=== PATIENT | male | born 1945 | race Caucasian/White ===

== ENCOUNTER → 2016-05-07 | Outpatient (CLI) | payer OTHER ==
[~2016-05-07] MED LIST: ADVIN25/60 INH; ALBUAER2 INH; ALL100 PO; ATOR10TA88 PO; CALC500C3 PO; CHOL400T PO; CHOL4POW6 PO; COLC0.6T54 PO; DIGO0.122 PO; DILT-115 PO; DOCU-94 PO; FURO-85 PO; GLUC10007 PO; LISI-725 PO; LORA-741 PO; MAGN250T8 PO; OMEG10007 PO; POTACAP PO; RIVA1TAB4 PO; VITBC PO
[2016-05-07 17:59] LABS: BLOOD UREA NITROGEN 38 mg/dl (7-18); BUN/CREATININE RATIO 31.7 (10-20); CALCIUM 9.2 mg/dl (8.5-10.1); CARBON DIOXIDE 26 mmol/L (21-32); CHLORIDE 104 mmol/L (98-107); GLUCOSE 87 mg/dl (70-99); POTASSIUM 4.2 mmol/L (3.5-5.1); SODIUM 141 mmol/L (136-145)
== END | disposition home or self-care (01) ==
LOC: C.LAB1850 16:16
PROVIDERS: ATTEND Internal Medicine Cardiovascular Disease
DX: I50.9 Heart failure, unspecified (principal)

== ENCOUNTER → 2016-08-06 | Outpatient (CLI) | payer OTHER ==
[~2016-08-06] MED LIST changes: +ATOR10TA82 PO; -ATOR10TA88 PO
[2016-08-06 09:53] LABS: HEMATOCRIT 46.9 % (42-52); MEAN CELL VOLUME 96.7 fL (80-100); MEAN CORPUSCULAR HEMOGLOBIN 32.8 pg (25-34); MEAN CORPUSCULAR HGB CONC 33.9 g/dl (32-36); MEAN PLATELET VOLUME 11.4 fL (7.4-10.4); PLATELET COUNT 180 K/uL (130-400); RED BLOOD COUNT 4.85 M/uL (4.7-6.1); WHITE BLOOD COUNT 4.51 K/uL (4.8-10.8)
[2016-08-06 10:15] LABS: CALCIUM 9.4 mg/dl (8.5-10.1)
[2016-08-06 10:18] LABS: ALT/SGPT 45 U/L (12-78); AST/SGOT 36 U/L (15-37); BLOOD UREA NITROGEN 21 mg/dl (7-18); BUN/CREATININE RATIO 21.9 (10-20); CARBON DIOXIDE 27 mmol/L (21-32); CHLORIDE 104 mmol/L (98-107); CREATININE 0.97 mg/dl (0.60-1.40); GLUCOSE 90 mg/dl (70-99); MAGNESIUM 2.2 mg/dl (1.8-2.4); POTASSIUM 3.8 mmol/L (3.5-5.1); SODIUM 140 mmol/L (136-145)
[2016-08-06 10:20] LABS: ALKALINE PHOSPHATASE 188 U/L (45-117)
== END | disposition home or self-care (01) ==
LOC: C.LAB1850 07:33
PROVIDERS: ATTEND Physician Assistant
DX: I48.91 Unspecified atrial fibrillation (principal)

== ENCOUNTER → 2016-09-03 | Outpatient (CLI) | payer OTHER ==
[2016-09-03 09:57] LABS: BLOOD UREA NITROGEN 24 mg/dl (7-18); BUN/CREATININE RATIO 21.9 (10-20); CALCIUM 9.1 mg/dl (8.5-10.1); CARBON DIOXIDE 28 mmol/L (21-32); CHLORIDE 103 mmol/L (98-107); CHOLESTEROL 131 mg/dl (0-200); GLUCOSE 75 mg/dl (70-99); SODIUM 140 mmol/L (136-145); TRIGLYCERIDES 40 mg/dl (0-150); VERY LOW DENSITY LIPOPROT CALC 8 mg/dl
[2016-09-03 09:59] LABS: CHOLESTEROL/HDL RATIO 2.5; HDL CHOLESTEROL 52 mg/dl; LDL CHOLESTEROL CALCULATED 71 mg/dl
[2016-09-08 00:38] LABS: ALK PHOS ISO-INTESTINE 0 % (1-24); ALK PHOS ISO-LIVER 68 % (25-69); ALK PHOS ISO-PLACENTAL 0 % (<=0); ALK PHOS MACROHEPATIC 0 % (<=0); ALP (ALK P'TASE) 159 U/L (40-115)
== END | disposition home or self-care (01) ==
LOC: C.LAB1850 07:29
PROVIDERS: ATTEND Internal Medicine
DX: R74.8 Abnormal levels of other serum enzymes (principal); I50.9 Heart failure, unspecified

== ENCOUNTER → 2016-09-17 | Outpatient (CLI) | payer OTHER ==
[2016-09-17 10:05] LABS: BLOOD UREA NITROGEN 30 mg/dl (7-18); BUN/CREATININE RATIO 27.1 (10-20); CARBON DIOXIDE 28 mmol/L (21-32); CHLORIDE 104 mmol/L (98-107); GLUCOSE 74 mg/dl (70-99); POTASSIUM 4.1 mmol/L (3.5-5.1); SODIUM 141 mmol/L (136-145)
[2016-09-17 10:08] LABS: CALCIUM 9.5 mg/dl (8.5-10.1)
== END | disposition home or self-care (01) ==
LOC: C.LAB1850 07:15
PROVIDERS: ATTEND Physician Assistant
DX: I50.22 Chronic systolic (congestive) heart failure (principal)

== ENCOUNTER → 2016-11-30 | Outpatient (CLI) | payer OTHER ==
[~2016-11-30] MED LIST changes: -ATOR10TA82 PO; +ATOR10TA88 PO
[2016-11-30 17:15] LABS: BLOOD UREA NITROGEN 32 mg/dl (7-18); BUN/CREATININE RATIO 29.5 (10-20); CALCIUM 8.9 mg/dl (8.5-10.1); CARBON DIOXIDE 28 mmol/L (21-32); CHLORIDE 108 mmol/L (98-107); GLUCOSE 67 mg/dl (70-99); POTASSIUM 4.5 mmol/L (3.5-5.1); SODIUM 142 mmol/L (136-145)
== END | disposition home or self-care (01) ==
LOC: C.LAB1850 15:19
PROVIDERS: ATTEND Physician Assistant
DX: I42.9 Cardiomyopathy, unspecified (principal)

== ENCOUNTER → 2017-02-08 | Outpatient (CLI) | payer OTHER ==
[2017-02-08 09:35] LABS: BASO % 1.3 %; BASO ABS # 0.06 K/uL (0-0.2); COMPLETE YES; EOS % 5.6 %; IG% 0.2 %; LYMPH % 20.2 %; LYMPH ABS # 0.93 K/uL (1.2-3.4); MEAN CELL VOLUME 98.9 fL (80-100); MEAN CORPUSCULAR HEMOGLOBIN 33.9 pg (25-34); MEAN CORPUSCULAR HGB CONC 34.3 g/dl (32-36); MEAN PLATELET VOLUME 11.3 fL (7.4-10.4); MONO % 10.2 %; NEUT % 62.5 %; PLATELET COUNT 173 K/uL (130-400); RED BLOOD COUNT 4.45 M/uL (4.7-6.1); WHITE BLOOD COUNT 4.61 K/uL (4.8-10.8)
[2017-02-08 09:57] LABS: BLOOD UREA NITROGEN 31 mg/dl (7-18); BUN/CREATININE RATIO 29.4 (10-20); CALCIUM 9.1 mg/dl (8.5-10.1); CARBON DIOXIDE 26 mmol/L (21-32); CHLORIDE 107 mmol/L (98-107); CHOLESTEROL 145 mg/dl (0-200); CHOLESTEROL/HDL RATIO 2.2; CREATININE 1.07 mg/dl (0.60-1.40); GLUCOSE 93 mg/dl (70-99); HDL CHOLESTEROL 66 mg/dl; LDL CHOLESTEROL CALCULATED 67 mg/dl; POTASSIUM 3.8 mmol/L (3.5-5.1); SODIUM 140 mmol/L (136-145); TRIGLYCERIDES 58 mg/dl (0-150); VERY LOW DENSITY LIPOPROT CALC 12 mg/dl
[2017-02-08 10:03] LABS: ALB/GLOB RATIO 1.1 (0.9-2); ALKALINE PHOSPHATASE 95 U/L (45-117); ALT/SGPT 25 U/L (12-78); AST/SGOT 27 U/L (15-37); PROSTATE SPECIFIC ANTIGEN 0.172 ng/ml (0.000-4.000); URIC ACID 5.9 mg/dl (2.6-7.2)
[2017-02-08 10:25] LABS: LYME DISEASE AB IGG NEG (NEG); LYME DISEASE AB IGM NEG (NEG)
== END | disposition home or self-care (01) ==
LOC: C.LAB1850 07:31
PROVIDERS: ATTEND Internal Medicine
DX: R74.8 Abnormal levels of other serum enzymes (principal); I48.91 Unspecified atrial fibrillation; I10 Essential (primary) hypertension; E78.5 Hyperlipidemia, unspecified; Z12.5 Encounter for screening for malignant neoplasm of prostate; M10.9 Gout, unspecified; I50.22 Chronic systolic (congestive) heart failure; M25.50 Pain in unspecified joint

== ENCOUNTER → 2017-08-09 | Outpatient (CLI) | payer OTHER ==
[~2017-08-09] MED LIST changes: +ATOR10TA82 PO; -ATOR10TA88 PO
[2017-08-09 09:42] LABS: HEMATOCRIT 45.4 % (42-52); HEMOGLOBIN 15.3 g/dL (14.0-18.0); MEAN CELL VOLUME 100.7 fL (80-100); MEAN CORPUSCULAR HEMOGLOBIN 33.9 pg (25-34); MEAN CORPUSCULAR HGB CONC 33.7 g/dl (32-36); MEAN PLATELET VOLUME 11.1 fL (7.4-10.4); PLATELET COUNT 185 K/uL (130-400); RED CELL DISTRIBUTION WIDTH CV 13.8 % (11.5-14.5); WHITE BLOOD COUNT 3.96 K/uL (4.8-10.8)
[2017-08-09 09:54] LABS: ALT/SGPT 26 U/L (12-78); AST/SGOT 25 U/L (15-37); BLOOD UREA NITROGEN 31 mg/dl (7-18); CARBON DIOXIDE 29 mmol/L (21-32); CHOLESTEROL 135 mg/dl (0-200); GLUCOSE 83 mg/dl (70-99); POTASSIUM 3.6 mmol/L (3.5-5.1); SODIUM 140 mmol/L (136-145)
[2017-08-09 09:57] LABS: ALKALINE PHOSPHATASE 85 U/L (45-117); LDL CHOLESTEROL CALCULATED 67 mg/dl; TOTAL PROTEIN 7.7 gm/dl (6.4-8.2)
== END | disposition home or self-care (01) ==
LOC: C.LAB1850 07:33
PROVIDERS: ATTEND Internal Medicine
DX: I50.22 Chronic systolic (congestive) heart failure (principal); I48.91 Unspecified atrial fibrillation; E78.5 Hyperlipidemia, unspecified

== ENCOUNTER 2020-02-26 11:56 | Observation (INO) ==
[2020-02-26] MEDS ORDERED: fentaNYL citrate 100 MCG/2 ML VIAL ONE ×2 (12:38→13:13)
[2020-02-26] MEDS ORDERED: MIDAZOLAM HCL 5 MG/ML 1 ML VIAL ONE (12:38)
--- NOTE | 2020-02-26 12:45 | History & Physical Report ---
Date of Service February 26, 2020 Assessment & Plan (1) Cardiomyopathy: With his cardiomyopathy, left bundle branch block pattern and class III congestive heart failure symptoms we are planning biventricular ICD implantation. I reviewed the indications, procedure, risks and alternatives of device implantation with him and he understands and agrees to proceed. Consent obtained. I also discussed conscious sedation with him and he is agreeable. Consent obtained. We will proceed with device implantation. History of Present Illness Chief Complaint: Scheduled biventricular ICD implantation Primary Care Provider: Chun Jurado MD This is a 74-year-old gentleman who had a long history of reentrant SVT. He was followed at [facility] for many years and about 2004 switched to our practice. 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 In retrospect his CVA was probably due to unrecognized atrial fibrillation. Post cardioversion he developed SVT at a rate of about 120 beats per minute which appeared to be typical AV jus reentry and was terminated with adenosine. 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 Following ablation he had no further symptoms until around March 21, 2010 when he developed recurrent palpitations and on March 25, 2010 we documented return of atrial fibrillation. He had no symptoms suggestive of SVT triggering it therefore the ablation appeared to be successful for his AVNRT but unfortunately he has recurrent atrial fibrillation (which is common, we had hoped SVT ablation would eliminate the atrial arrhythmia but it did not). He was very symptomatic with the arrhythmia (although the rate was well-controlled) therefore we opted to attempt maintenance of sinus rhythm with medications initially. He failed treatment with Multaq, flecainide and ultimately we performed atrial fibrillation ablation at [place]. His first ablation was 01/28/2011, the details of his early medical therapy and his ablation attempts are detailed in my letter of 04/24/2014. In all he required 3 A. fib ablations, the last of which was performed on 08/03/2014. He had early recurrence however and it was felt that further catheter ablation attempts would not be worthwhile. He still felt very uncomfortable during atrial fibrillation and wanted very much to be in sinus rhythm, therefore we pursued attempts at finding a place which would do a minimally invasive maze procedure. He was seen at [facility] and subsequently at [facility], however it was felt that he needed an open chest procedure and he chose not to have that done. That was in the early part of 2014 when that decision was made. As part of that process we did do a cardiac catheterization at [facility] on May 17, 2014 which showed nonobstructive coronary artery disease including a 50% proximal LAD stenosis (FFR proven nonobstructive) and luminal irregularities in the right coronary artery. He is on atorvastatin but not a platelet inhibitor. More recently he developed congestive heart failure and left ventricular dysfunction, his ejection fraction was felt to be normal on March 05, 2014 with an ejection fraction of 55 to 60%, unchanged from 2009. However a subsequent echocardiogram done September 22, 2015 showed moderate left ventricular dysfunction with ejection fraction of 35 to 40% as well as severe concentric left ventricular hypertrophy. Another echocardiogram January 16, 2016 showed his ejection fraction to have fallen to 30-35%. This was felt to be due possibly to amyloid, however urine and protein electrophoresis was unremarkable. He was started on diuretics, he cannot tolerate beta blockers due to exacerbation of asthma therefore his lisinopril was titrated. He was already on digoxin. He was subsequently switched to Entresto and that was titrated to optimal dosing with discontinuation of lisinopril. An echocardiogram April 21, 2016 was interpreted as an ejection fraction of 35 to 40% and although there was some fluctuation over the next year and a half by December 2017 his ejection fraction was about 40% Clinically he was doing very well over the summer 2018, working very hard doing [employer] and not having difficulty with heart failure symptoms. He did not seem to be bothered very much by the atrial fibrillation either. I did repeat his echocardiogram to see whether the Entresto was helping with his left ventricular function, that was done January 04, 2019 and it showed severe global hypokinesis with severe concentric left ventricular hypertrophy and ejection fraction of 20 to 25%. This was felt to be worse than December 2017. Left ventricle however was felt to be normal in size. I did look for amyloid and based on serum and urine protein electrophoreses it does not seem to be present. 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 He has been continuing to feel poorly. He is taking high doses of Entresto (200 mg combined twice daily) which he has been on for a long time as well as metoprolol succinate but only 50 mg daily due to hypotension and bronchospasm. He did bring in a blood pressure log at her prior visit and his blood pressure was very low in the late morning (he takes his metoprolol in the evening), as low as 64/29 at 1230 on September 27, 2019 when he logged it at various times during the day. He sometimes will have to sit down as he will feel very weak, but he has not had presyncope. He felt that his symptoms of low blood pressure started when he started spironolactone but we have continued it. We have discussed ICD implantation, including biventricular pacing, in the past and we are following his left ventricular function to see whether we should move in that direction. We did get an echocardiogram prior to his visit on January 08, 2020 and this shows severe left ventricular dysfunction with ejection fraction of 25 to 30%. He does have severe concentric left ventricular hypertrophy. He does have a small hemodynamically insignificant pericardial effusion. His last echocardiogram of June 29, 2019 suggested a somewhat better ejection fraction, however this 1 appears similar to January 04, 2019 based on the report. With ongoing and gradually worsening heart failure symptoms, progressive left ventricular dysfunction on optimal medical therapy, a left bundle branch pattern with a wide QRS complex a biventricular ICD was recommended and he is agreeable. Allergies Allergy/AdvReac Type Severity Reaction Status Date / Time cat dander Allergy Unknown ITCHY EYES Unverified 02/26/20 12:31 No Known Drug Allergies Allergy Unknown NONE Unverified 02/26/20 12:31 ragweed pollen Allergy Unknown asthma Verified 02/26/20 12:31 symptoms,dizziness,lethargy Home Medications Home Medications Medication Instructions Recorded Confirmed Type vitamin B complex 1 tabs PO DAILY 11/16/18 02/26/20 History calcium carbonate 500 mg calcium 1,000 mg PO DAILY #30 tab 11/23/18 02/26/20 Rx (1,250 mg) chewable tablet cholecalciferol (vitamin D3) 25 1,000 units PO DAILY #30 tab 11/23/18 02/26/20 Rx mcg (1,000 unit) tablet colchicine 0.6 mg tablet 0.6 mg PO BID PRN #180 tab 11/23/18 02/26/20 Rx glucosamine HCl 500 mg tablet 2,000 mg PO TID #90 tab 11/23/18 02/26/20 Rx loratadine 10 mg tablet 10 mg PO DAILY #90 tab 11/23/18 02/26/20 Rx magnesium oxide See Rx Instructions PO .COMPLEX 11/23/18 02/26/20 Rx #30 tab omega-3 fatty acids-fish oil 360 3 cap PO DAILY #30 cap 11/23/18 02/26/20 Rx mg-1,200 mg capsule rivaroxaban 20 mg tablet 20 mg PO DAILY #90 tab 04/20/19 02/26/20 Rx sacubitril 97 mg-valsartan 103 mg 1 tab PO BID #180 tab 04/20/19 02/26/20 Rx tablet atorvastatin 10 mg tablet 10 mg PO DAILY #90 tab 05/16/19 02/26/20 Rx furosemide 20 mg tablet 20 - 40 mg PO DAILY #180 tab 07/12/19 02/26/20 Rx metoprolol succinate 50 mg 50 mg PO DAILY #90 tab 07/16/19 02/26/20 Rx tablet,extended release 24 hr lorazepam 0.5 mg tablet 0.5 - 1 mg PO DAILY PRN #60 tab 08/16/19 02/26/20 Rx albuterol sulfate 90 mcg/actuation See Rx Instructions INH .COMPLEX 11/23/19 02/26/20 Rx aerosol inhaler #25.5 gm fexofenadine 180 mg tablet 180 mg PO DAILY 01/17/20 02/26/20 History fluticasone 250 mcg-salmeterol 50 1 inh INHALATION BID PRN 01/17/20 02/26/20 History mcg/dose blistr powdr for inhalation allopurinol 100 mg tablet 100 mg PO .COMPLEX #135 tab 02/20/20 02/26/20 Rx Past Med/Surg History Medical History Allergic rhinitis Asthma Atrial fibrillation and flutter Cardiomyopathy Chronic systolic (congestive) heart failure Gout, joint History of cerebral embolism Hyperlipidemia Hypertension On anticoagulant therapy Osteoarthritis Palpitations Supraventricular tachycardia Surgical History History of knee surgery History of lumbar surgery Hx of tonsillectomy Family History Mother Breast cancer Brother Coronary heart disease Denies family history of Colon cancer Ovarian cancer Prostate cancer Social History Smoking Status: Never smoker Second Hand Exposure: No; Hx Alcohol Use: No Hx Substance Use: No Preferred Language: Cambodian Communication Ability: Effective Visual Impairment: No Limitations Hearing Ability: Hard of Hearing Beliefs That Will Affect Care: None marital status: Current Living Situation: Spouse current occupational status: retired Feels Safe at Home: Yes Safety Concerns: Feels Safe At This Time Childhood Exposure to Second-Hand Smoke: No Dental Care, Regularly: No Physical Activity Frequency: Daily Seatbelt Use: always Sunscreen Use: Yes Review of Systems Review of Systems: All systems reviewed & are unremarkable except as noted in HPI & below Physical Exam Physical Exam: Constitutional: Alert, cooperative and in no distress. HEENT: Unremarkable Neck: No jugular venous distention, carotid pulses are irregular but otherwise normal and equal bilaterally without bruits. Pulmonary: Clear to auscultation bilaterally. Cardiac: Irregular slow rhythm with a soft holosystolic murmur at the apex, no gallop or rub. Abdomen: Soft, nontender with normal bowel sounds. Extremities: +1 bilateral pretibial edema. Distal pulses intact. Neurologic: No focal findings. Gait is steady. Skin: No rash, ecchymoses or petechiae. Results & Data Results & Data ([facility] [place]) Vital Signs (Past 12 Hours) Vital Signs Pulse Resp BP Pulse Ox 02/26/20 12:15 66 18 146/93 H 97 Laboratory Results Intake and Output 02/25/20 02/26/20 02/26/20 22:59 06:59 14:59 Other: Weight 82.3 kg Weight Measurement Method Standing Scale Patient Weight 02/27/20 06:59 Weight 82.3 kg PG Care Time/CCT Total # of Minutes Spent Total Time Spent with Patient: Total time spent is greater than 50% in coordination of care (as documented) at patient's floor/unit and/or counseling patient: Coding Level of Care Code None Diagnoses Cardiomyopathy I42.9
[2020-02-26] MEDS ORDERED: LIDOCAINE HCL 1% 20 ML VIAL ONE (12:46)
[2020-02-26] MEDS ORDERED: BACITRACIN OINT 0.9 GM PKT ONE (12:46)
[2020-02-26] MEDS ORDERED: BACITRACIN INJ 50,000 UNIT VIAL ONE (12:48)
--- NOTE | 2020-02-26 12:50 | Pre Anesthesia Assessment ---
Date of Service February 26, 2020 Pre Sedation Assessment Vital Signs Pulse Resp BP Pulse Ox 02/26/20 12:15 66 18 146/93 H 97 Cardiovascular RRR, no murmur, no edema Respiratory normal respiratory effort, lungs clear to auscultation Pre-Sedation Airway Assessment Smoking Status: Never smoker Hx Sleep Apnea: No Hx Difficult Intubation: No Short, Thick Neck: No Thyromental Distance: > or= 3.5 Finger Breadths Oral Cavity: + WNL Mallampati Class: I ASA: ASA3 NPO Status Date of Last Intake of Fluids: 02/25/20 Date of Last Intake of Solid Food: 02/25/20 Procedure Planning Contraindications for Sedation: none Current Medications Reviewed: Yes Notes The planned sedation has been discussed with the patient. Informed Consent was obtained. I have identified the patient, determined the appropriateness of sedation and have assessed the patient immediately prior to the procedure. All medicine(s) and interventions are by my order.
[2020-02-26] MEDS ORDERED: KETOROLAC TROMETHAMINE 10 MG TABLET PO PRN (14:48)
[2020-02-26] MEDS ORDERED: ACETAMINOPHEN 325 MG TAB PO PRN (14:48)
--- NOTE | 2020-02-26 14:48 | Electrophysiology Report ---
Date of Service February 26, 2020 Electrophysiology Procedure Electrophysiology Procedure Report Preoperative diagnosis: Left bundle branch block, cardiomyopathy, congestive heart failure, permanent atrial fibrillation Postoperative diagnosis: Same Procedure: Ventricular defibrillator lead implantation Coronary sinus angiography Left ventricular lead implantation Biventricular ICD implantation Surgeon: Valdez Pearson MD Estimated blood loss: 50 cc Complications: None Disposition: Cardiology recovery Procedure details: After obtaining informed consent for the procedure, the patient was brought to the laboratory and prepped and draped in the standard sterile manner. The left prepectoral region was anesthetized with 1% lidocaine local anesthetic and left axillary venipuncture was performed by percutaneous t echnique and a guidewire placed through the left subclavian vein into the superior vena cava. The area was further infiltrated with 1% lidocaine local anesthetic and a 5 cm incision was made parallel to the left clavicle and 2 cm below it and carried down to the anterior pectoralis fascia. An ICD pocket was formed by blunt dissection anterior to the pectoralis fascia and a bacitracin- soaked sponge (50,000 units in 50 cc normal saline solution) was placed in the pocket. A 10.5 Albanian Medtronic lead introducer was placed over the guidewire into the left subclavian vein, the dilator and guidewire were removed and a bipolar active fixation steroid tipped ventricular ICD lead was advanced through the introducer into the superior vena cava. A guidewire was placed through the introducer and the introducer was stripped from the lead and guidewire. Using a curved stylette the ventricular lead was advanced through the right ventricular outflow tract into the pulmonary artery and then using a straight stylette was positioned in the right ventricular apex. The screw was extended fixing the lead in position. Pacing and sensing thresholds were evaluated in bipolar configuration and are recorded on the implant data sheet. Diaphragmatic pacing was evaluated at full bipolar output as indicated on the data sheet. Once the lead was in position it was attached to the anterior pectoralis fascia using 1 suture of 2-0 silk around the lead collar. The short guidewire was exchanged for a long guidewire and a Mckittrick coronary sinus sheath was advanced to position in the right atrium. The curved obturator was placed through the sheath and using x-ray dye the os of the coronary sinus was identified. A guidewire was placed through the introducer into the coronary sinus and the Hannah sheath was advanced into the coronary sinus. A subselecting catheter was advanced through the sheath into the distal coronary sinus, dye was injected for coronary sinus angiogram. A good vessel was identified and a 0.014 inch guidewire was advanced into this vessel. A quadripolar coronary sinus catheter was advanced over the guidewire into good distal position. The left ventricular pacing threshold was evaluated in various configurations, as recorded on the implant data sheet. Diaphragmatic pacing was evaluated at full output, as indicated on the data sheet. Once this lead was in position the introducer system was removed from the lead and the lead was attached to the anterior pectoral fascia using 2 sutures of 2-0 silk around the lead collar. An additional suture of 2-0 silk was placed around the ventricular lead collar as well. The bacitracin-soaked sponge was removed from the pocket, hemostasis was obtained, the ICD was attached to the leads and placed in the pocket with the leads coiled beneath it. The atrial port was plugged with a pin. The incision was closed with a running double subcutaneous closure of 3-0 Vicryl absorbable suture, followed by running subcuticular skin closure of 4-0 Vicryl absorbable suture. Bacitracin ointment was placed on the incision and a dressing applied. [facility] Electrophysiology codes Pacing Procedure 1: Pacin BiV electrode w/Pacer / ICD implant, add on code ICD Procedure 1: ICD: 79649 Insert single or dual ICD system Miscellaneous Procedures Procedure 1: EP Miscellaneous: 63468 Contrast injection for venography Procedure 2: EP Miscellaneous: 15969-00 Venography, CS supevsion/interp PG Moderate Sedation Codes Moderate Sedation Codes Procedure 1: Sedation/Anesthesia: 42455 Mod Sedation by the same physician;Init15 Min Child Age 5 & Up Procedure 2: Sedation/Anesthesia: 20714 Mod Sedation by the same physician; Ea [id number] Minutes
[2020-02-26] MEDS ORDERED: SACUBITRIL-VALSARTAN 97-103 MG TAB PO SCH (21:00)
[2020-02-26] MEDS ORDERED: COLCHICINE 0.6 MG TAB PO PRN (21:00)
--- NOTE | 2020-02-27 06:48 | XRay Report ---
XR chest 2V PA/lateral HISTORY: 74 years-old Male EXACT TIME ORDERED Evaluate for pneumothorax and l status post placement of a left subclavian pacer. COMPARISON: Chest radiographs 03/24/2016 TECHNIQUE: PA and lateral views of the chest FINDINGS: Cardiac silhouette is enlarged. Chronic interstitial coarsening of the lung bases. Unchanged moderate right pleural effusion with right lung base consolidation. Hiatal hernia. Status post placement of a dual-lead left subclavian pacer/AICD. There is no postprocedural pneumothorax identified. Degenerati ve changes of the shoulders and spine. IMPRESSION: Status post placement of a dual lead left subclavian pacer/AICD. No postprocedural pneumo thorax. ACT 112: Negative or not required by law. The above report was generated using voice recognition software. It may contain grammatical, syntax o r spelling errors. Electronically signed by: Earnest Bustamante M.D. 02/27/2020 6:46 AM
[2020-02-27] MEDS ORDERED: OMEGA-3 (PURIFIED FISH OIL) 1 GM CAP PO SCH (09:00)
[2020-02-27] MEDS ORDERED: CALCIUM CARBONATE 1250MG TAB PO SCH (09:00)
[2020-02-27] MEDS ORDERED: CHOLECALCIFEROL 1,000 UNITS 25 MCG TAB PO SCH (09:00)
[2020-02-27] MEDS ORDERED: VITAMIN B COMPLEX TAB PO SCH (09:00)
[2020-02-27] MEDS ORDERED: LORATADINE 10 MG TAB PO SCH (09:00)
[2020-02-27] MEDS ORDERED: METOPROLOL SUCC 50MG EXT REL TAB PO SCH ×2 (09:00→21:00)
[2020-02-27] MEDS ORDERED: allopurinoL 100 MG TAB PO SCH ×2 (09:00)
[2020-02-27] MEDS ORDERED: FEXOFENADINE HCL 180 MG TAB PO SCH (09:00)
[2020-02-27] MEDS ORDERED: SACUBITRIL-VALSARTAN 97-103 MG TAB PO SCH (09:00)
[2020-02-27] MEDS ORDERED: ATORVASTATIN 10 MG TAB PO SCH ×2 (09:00→21:00)
--- NOTE | 2020-02-27 10:40 | Cardiology Progress Note ---
Date of Service February 27, 2020 Assessment & Plan (1) Status post implantation of automatic cardioverter/defibrillator (AICD): He is doing very well postop day #1 following device implantation. It is working well, leads are in good position and the incision looks good. Stable for discharge. (2) Atrial fibrillation and flutter: He remains in permanent atrial fibrillation. His ventricular response is somewhat elevated therefore he has only biventricular pacing about 95% of the time one set at 70 bpm. Hopefully this will improve with increasing beta- blockade. (3) On anticoagulant therapy: We did hold his Xarelto but he is going to resume it tonight (4) Chronic systolic (congestive) heart failure: His heart failure is under good control and we did not give him Lasix yesterday or today, he is going to continue adjusting it as he has in the past based on his weight. He is going to check his weight when he gets home. Admission and Anticipated Discharge Date Admission Date: February 26, 2020 Subjective He is feeling well today, he does not have significant incisional discomfort, only minor discomfort with arm movement. No shortness of breath or chest discomfort. His main complaint is that he did not sleep well last night and he is tired. Physical Exam Physical Exam: The incision is clean and dry, no bleeding, no ecchymosis or drainage. Results & Data ([facility]) Vital Signs (Past 12 Hours) Vital Signs Temp Pulse Resp BP Pulse Ox 02/27/20 07:07 36.7 C 68 20 141/88 H 98 02/27/20 03:51 36.7 C 70 18 106/69 92 02/26/20 23:55 36.7 C 63 18 136/86 95 Diagnostic Findings Telemetry: Predominantly ventricular pacing, some intrinsic conduction, underlying atrial fibrillation Electrocardiogram postop: Appropriate biventricular pacing with underlying atrial fibrillation Chest x-ray: Good lead position, no pneumothorax ICD evaluation: Excellent pacing and sensing characteristics, intervals appear to be appropriate and were not adjusted at this time PG Care Time/CCT Total # of Minutes Spent Total Time Spent with Patient: Total time spent is greater than 50% in coordination of care (as documented) at patient's floor/unit and/or counseling patient: Coding Level of Care Code 70419 Post Operative Follow-Up Diagnoses Status post implantation of automatic cardioverter/defibrillator (AICD) Z95.810 Atrial fibrillation and flutter I48.91; I48.92 On anticoagulant therapy Z79.01 Chronic systolic (congestive) heart failure I50.22 CPT Codes Implantable Defib Multi lead programming - 60426 ([id number])
--- NOTE | 2020-02-27 15:54 | Electrocardiogram Report ---
Test Reason : Blood Pressure : / mmHG Vent. Rate : 070 BPM Atrial Rate : 070 BPM P-R Int : 000 ms QRS Dur : 168 ms QT Int : 474 ms P-R-T Axes : -07 263 051 degrees QTc Int : 511 ms Ventricular-paced rhythm Underlying atrial fibrillation Abnormal ECG When compared with ECG of 07-AUG-2012 07:57, Electronic ventricular pacemaker has replaced Sinus rhythm Confirmed by Valdez Pearson ([id number]) on 02/27/2020 3:54:24 PM Referred By: Valdez Pearson Confirmed By:Valdez Pearson
[2020-02-28] MEDS ORDERED: allopurinoL 100 MG TAB PO SCH (09:00)
== END 2020-02-27 10:56 | disposition home or self-care (01) ==
LOC: 2S 11:56 → EP 11:56
PROC: EPB.ICD (2020-02-26 13:00)
DX: I44.7 Left bundle-branch block, unspecified; I42.9 Cardiomyopathy, unspecified; Z79.899 Other long term (current) drug therapy; M10.9 Gout, unspecified; I48.21 Permanent atrial fibrillation; I50.22 Chronic systolic (congestive) heart failure

== ENCOUNTER 2021-04-21 12:12 | Inpatient (IN) ==
--- NOTE | 2021-04-21 12:49 | Emergency Department Note ---
Impression & Plan Acute CHF, Cardiomyopathy, Orthopnea, Hypermagnesemia, Anemia, Elevated troponin ED Provider Note NAME: NAVNEET ROJAS AGE: 75 SEX: M : 1945 ARRIVES VIA: Walk-In INFORMANT: Patient, ED PROVIDER(S): Danny Puckett MD Chief Complaint: Shortness of breath HPI: Patient does present with concern for shortness of breath which is been insidious in onset but progressively worse over the last 3 to 4 weeks. The p atient has tried to decrease sodium intake as well as increase the patient's at home Lasix from 40 to 60 mg but without significant improvement in symptoms. The patient has follow-up with Dr. Luke. Patient denies any fevers or chills. The patient denies any cough and the patient is vaccinated for COVID- 19. Patient has noticed increasing lower extremity edema with associated weeping wounds. Patient denies any nausea vomiting or diarrhea. The patient states that he has not gotten significant sleep the last several nights due to issues with shortness of breath. The patient does have exertional dyspnea as well as orthopnea. Patient states that nothing is made his symptoms any better other than rest. ROS: See HPI for pertinent positives and negatives. A total of 10 systems were rev iewed and otherwise negative. Past medical history: See below Surgical history: See below Social history: See below Physical Exam: GENERAL: Mildly ill in appearance, wearing a mask. EYE EXAM: Normal conjunctiva. PERRL, no anisocoria and EOM's grossly intact w/o pain. NECK: Supple, no nuchal rigidity, no adenopathy, non-tender. No signs of meningismus. LUNGS: Decreased breath sounds bilateral bases. Normal chest wall mechanics. HEART: Tachycardic, no MRG. ABDOMEN: Abdomen soft, abdominal wall body edema noted. Normo-active bowel sounds, no masses, no rebound or guarding. BACK: No CVA TTP. SKIN: Petechiae noticed to the bilateral groin but not involving the scrotum and no pain to palpation. There is no blistering. UPPER EXTREMITIES: Bilateral hand edema noted. LOWER EXTREMITIES: Significant bilateral lower extremity edema with weeping areas over the bilateral lower extremities. Compartments are soft and without crepitus. NEURO EXAM: A&O x3, cranial nerves II-XII grossly intact, normal speech, moves all 4 extremities on command w/o issue. Good finger to nose, no drift, no sens ory deficits. Differential diagnoses: Reactive airway disease, pneumonia, pneumothorax, COPD, CHF, infections, cardiac ischemia, pulmonary embolism, musculoskeletal, gastrointestinal, as well as other pathologies. Course: Patient was seen and evaluated the bedside. Full history physical exam was performed. EKG interpreted by me Ventricular paced rhythm with possible PVCs, rate of 108, no obvious ST changes. Rate is increased from comparison EKG February 26, 2020. Imaging Studies: See Below Cardiac monitoring: An order was placed for continuous cardiac monitoring. The monitor shows a rate of 95 with paced rhythm. MDM: Patient was seen due to concern for shortness of breath and fluid overload. The patient does have vascular congestion with pulmonary edema. The patient does have pleural effusions. The patient does have significant lower extremity edema upper extremity edema even abdominal wall edema. Patient was ordered 80 of Lasix. Patient has a normal white counts with mild anemia with a hemoglobin of 10.9. The patient's platelet count is normal. The patient's kidney function is at virtual baseline with creatinine 2.4. Magnesium is elevated 3.4. The patient has significant elevation in BNP at greater than 10,000 with a positive troponin 0.149. Patient has followed with [facility] in the past with Dr. Pedroza he was advocating for an LVAD but the patient would not like to pursue this at this time. The patient would like to pursue additional treatment but would prefer to stay at this hospital at this time. The patient is trying to pursue alternative treatments for his heart failure some of which may not be available here. Patient understands this but would prefer to stay at this hospital at this time and does not want to be transferred. I did speak to the on-call hospitalist Dr. Haider the patient was admitted to the medicine service. Past Med/Surg History Medical History Allergic rhinitis Asthma Atrial fibrillation and flutter Cardiomyopathy Chronic systolic (congestive) heart failure Gout, joint History of cerebral embolism Hyperlipidemia Hypertension Hypothyroidism Leg wound, right On anticoagulant therapy Osteoarthritis Palpitations Supraventricular tachycardia Surgical History History of bilateral carpal tunnel release History of knee surgery History of lumbar surgery Hx of tonsillectomy Family History Mother Breast cancer Brother Coronary heart disease Denies family history of Colon cancer Ovarian cancer Prostate cancer Social History Smoking Status: Former smoker Second Hand Exposure: No; Hx Alcohol Use: Yes Alcohol type: wine Hx Substance Use: No Preferred Language: Urdu Communication Ability: Effective Visual Impairment: No Limitations Hearing Ability: Hard of Hearing 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 Beliefs That Will Affect Care: None marital status: Current Living Situation: Spouse current occupational status: retired Feels Safe at Home: Yes Childhood Exposure to Second-Hand Smoke: No Dental Care, Regularly: No Physical Activity Frequency: Daily Seatbelt Use: always Sunscreen Use: Yes Assistive Devices: None Allergies Allergies Allergy/AdvReac Type Severity Reaction Status Date / Time cat dander Allergy Unknown ITCHY EYES Verified 04/21/21 13:30 No Known Drug Allergies Allergy Unknown NONE Verified 04/21/21 13:30 ragweed pollen Allergy Unknown asthma Verified 04/21/21 13:30 symptoms,dizziness,lethargy Home Meds Home Medications Medication Instructions Recorded Confirmed omega 8-pfc-[id number]-fish oil 1,000 mg 1 cap PO BID 09/12/20 04/21/21 (120 mg-180 mg) capsule (Fish Oil) potassium chloride 10 mEq 10 meq PO BID tab 09/12/20 04/21/21 tablet,extended release cetirizine 10 mg tablet (Zyrtec) 10 mg PO DAILY 12/29/20 04/21/21 furosemide 20 mg tablet 40 - 80 mg PO DAILY PRN tab 12/29/20 04/21/21 Saccharomyces boulardii 250 mg 250 mg PO BID 04/21/21 04/21/21 capsule (Florastor) allopurinol 100 mg tablet 100 - 200 mg PO Q2D 04/21/21 04/21/21 atorvastatin 10 mg tablet 10 mg PO HS 04/21/21 04/21/21 calcium carbonate 200 mg calcium 200 mg PO BID 04/21/21 04/21/21 (500 mg) chewable tablet (Tums) cholecalciferol (vitamin D3) 25 1,000 units PO QAM 04/21/21 04/21/21 mcg (1,000 unit) tablet fluticasone 250 mcg-salmeterol 50 2 inh INHALATION BID 04/21/21 04/21/21 mcg/dose blistr powdr for inhalation (Galo Inhub) glucosamine HCl 500 mg tablet 2,000 mg PO BID 04/21/21 04/21/21 levothyroxine 125 mcg tablet 125 mcg PO DAILYBB 04/21/21 04/21/21 metoprolol succinate 100 mg 50 mg PO HS 04/21/21 04/21/21 tablet,extended release 24 hr multivitamin 1 tab PO Q2D 04/21/21 04/21/21 Previous Rx's Medication Instructions Recorded colchicine 0.6 mg tablet 0.6 mg PO BID PRN #180 tab 11/23/18 apixaban 5 mg tablet (Eliquis) 5 mg PO BID #60 tab 09/05/20 metolazone 5 mg tablet 5 mg PO DAILY PRN #90 tab 01/18/21 lorazepam 0.5 mg tablet 0.5 - 1 mg PO BID PRN #60 tab 02/27/21 Wheeled Walker #1 ea 03/23/21 albuterol sulfate 90 mcg/actuation See Rx Instructions INH .COMPLEX 03/31/21 aerosol inhaler (ProAir HFA) #25.5 gm Results & Data (ED) Vital Signs Vital Signs - 24 hr 04/21/21 12:15 04/21/21 13:08 04/21/21 13:33 Pulse Rate 90 70 Pulse Rate [Apical] 70 Pulse Rhythm Regular Pulse Rhythm [Apical] Regular Pulse Strength [Apical] Normal Respiratory Rate 20 26 H Respiratory Effort / Characteristics Non-Labored Spontaneous Spontaneous Accessory Muscle Use Short of Breath SOB on Exertion Respiratory Depth Normal Normal Respiratory Pattern Regular Tachypnea Blood Pressure 102/64 Blood Pressure [Left Arm] 86/69 L Blood Pressure Mean 76 Blood Pressure Mean [Left Arm] 74 Blood Pressure Position [Left Arm] Sitting Pulse Oximetry 98 99 99 Oxygen Delivery Method Room Air Room Air Room Air Oxygen Flow Rate 0 Sepsis Recent Fever Within 48 Hours No Sepsis New/Unexplained Change in Mental Status No Sepsis Action Taken by Nursing No Action Required 04/21/21 14:03 04/21/21 15:15 Pulse Rate 76 Pulse Rate [Apical] 70 73 Pulse Rhythm Regular Pulse Rhythm [Apical] Regular Regular Pulse Strength [Apical] Normal Respiratory Rate 24 20 Respiratory Effort / Characteristics Non-Labored Spontaneous Non-Labored Respiratory Depth Normal Normal Respiratory Pattern Regular Blood Pressure Blood Pressure [Left Arm] 100/79 96/69 L Blood Pressure Mean Blood Pressure Mean [Left Arm] 86 78 Blood Pressure Position [Left Arm] Sitting Lying Pulse Oximetry 98 98 Oxygen Delivery Method Room Air Room Air Oxygen Flow Rate Sepsis Recent Fever Within 48 Hours Sepsis New/Unexplained Change in Mental Status Sepsis Action Taken by Long Term Medications Current Medication List: was personally reviewed by me Laboratory Data Attestation: I reviewed the patient's lab results. Result diagrams: 04/21/21 12:55 04/21/21 12:55 Lab Results 04/21/21 04/21/21 04/21/21 Range/Units 12:55 12:55 12:55 WBC 7.07 (4.8-10.8) K/uL RBC 3.35 L (4.7-6.1) M/uL Hgb 10.9 L (14.0-18.0) g/dL Hct 33.9 L (42-52) % MCV 101.2 H (80-100) fL MCH 32.5 (25-34) pg MCHC 32.2 (32-36) g/dL RDW Std Deviation 60.0 H (36.4-46.3) fL RDW Coeff of Janes 16.3 H (11.5-14.5) % Plt Count 137 (130-400) K/uL MPV 13.2 H (7.4-10.4) fL Immature Gran % (Auto) 0.3 % Neut % (Auto) 89.5 % Lymph % (Auto) 7.4 % [place] % (Auto) 2.5 % Eos % (Auto) 0.3 % Baso % (Auto) 0.0 % Neut # (Auto) 6.33 (1.4-6.5) K/uL Lymph # (Auto) 0.52 L (1.2-3.4) K/uL [place] # (Auto) 0.18 (0.11-0.59) K/uL Eos # (Auto) 0.02 (0-0.5) K/uL Baso # (Auto) 0.00 (0-0.2) K/uL Immature Gran # (Auto) 0.02 (0.00-0.02) K/uL Absolute Nucleated RBC 0.03 H (0-0) K/uL Nucleated RBC % (auto) 0.4 % Platelet Estimate Decreased L (Normal) PT 15.0 H (9.0-12.0) Seconds INR 1.5 H (0.9-1.1) APTT 31.5 H (21.0-31.0) Seconds PTT Ratio 1.2 Sodium 132 L (136-145) mmol/L Potassium 4.5 (3.5-5.1) mmol/L Chloride 96 L (98-107) mmol/L Carbon Dioxide 28 (21-32) mmol/L Anion Gap 8.0 (3-11) BUN 124 H (7-18) mg/dl Creatinine 2.41 H (0.6-1.4) mg/dl Est Cr Clr Drug Dosing Not Reportable Est GFR ( Amer) 29.7 ml/min Est GFR (Non-Af Amer) 25.7 ml/min BUN/Creatinine Ratio 51.4 H (10-20) Glucose 153 H (70-99) mg/dl Calcium 9.4 (8.5-10.1) mg/dl Magnesium 3.4 H (1.8-2.4) mg/dl AST 42 H (15-37) U/L ALT 30 (12-78) Alkaline Phosphatase 203 H D (45-117) U/L Ammonia (11-32) umol/L Troponin I 0.149 H* (0-0.045) ng/ml NT-Pro-B Natriuret Pep (0-900) pg/ml Total Protein 6.9 (6.4-8.2) gm/dl Albumin 3.0 L (3.4-5.0) gm/dl Globulin 3.9 (2.5-4.0) gm/dl Albumin/Globulin Ratio 0.8 L (0.9-2) 04/21/21 04/21/21 Range/Units 12:55 13:18 WBC (4.8-10.8) K/uL RBC (4.7-6.1) M/uL Hgb (14.0-18.0) g/dL Hct (42-52) % MCV (80-100) fL MCH (25-34) pg MCHC (32-36) g/dL RDW Std Deviation (36.4-46.3) fL RDW Coeff of Janes (11.5-14.5) % Plt Count (130-400) K/uL MPV (7.4-10.4) fL Immature Gran % (Auto) % Neut % (Auto) % Lymph % (Auto) % [place] % (Auto) % Eos % (Auto) % Baso % (Auto) % Neut # (Auto) (1.4-6.5) K/uL Lymph # (Auto) (1.2-3.4) K/uL [place] # (Auto) (0.11-0.59) K/uL Eos # (Auto) (0-0.5) K/uL Baso # (Auto) (0-0.2) K/uL Immature Gran # (Auto) (0.00-0.02) K/uL Absolute Nucleated RBC (0-0) K/uL Nucleated RBC % (auto) % Platelet Estimate (Normal) PT (9.0-12.0) Seconds INR (0.9-1.1) APTT (21.0-31.0) Seconds PTT Ratio Sodium (136-145) mmol/L Potassium (3.5-5.1) mmol/L Chloride (98-107) mmol/L Carbon Dioxide (21-32) mmol/L Anion Gap (3-11) BUN (7-18) mg/dl Creatinine (0.6-1.4) mg/dl Est Cr Clr Drug Dosing Est GFR ( Amer) ml/min Est GFR (Non-Af Amer) ml/min BUN/Creatinine Ratio (10-20) Glucose (70-99) mg/dl Calcium (8.5-10.1) mg/dl Magnesium (1.8-2.4) mg/dl AST (15-37) U/L ALT (12-78) Alkaline Phosphatase (45-117) U/L Ammonia 23.6 (11-32) umol/L Troponin I (0-0.045) ng/ml NT-Pro-B Natriuret Pep 63397 H (0-900) pg/ml Total Protein (6.4-8.2) gm/dl Albumin (3.4-5.0) gm/dl Globulin (2.5-4.0) gm/dl Albumin/Globulin Ratio (0.9-2) Administered Medications Discontinued Medications Furosemide (Furosemide 40 Mg/4 Ml Vial) 80 mg IV NOW STA Stop: 04/21/21 13:09 Last Admin: 04/21/21 13:56 Dose: 80 mg Documented by: [id number] Imaging Data Radiologist's Impression: Chest X-Ray 04/21/21 12:20 XR chest 1V portable HISTORY: 75 years-old Male SOB acute shortness of breath COMPARISON: Chest radiographs 04/30/2020 TECHNIQUE: Portable AP view of the chest FINDINGS: Cardiac silhouette is enlarged. Left subclavian pacer/AICD. Right hemidiaphragmatic elevation. Small pleural effusions with bibasilar opacities. There is pulmonary vascular congestion with mild interstitial coarsening. Degenerative changes of the shoulders and spine. IMPRESSION: 1. Cardiomegaly with pulmonary vascular congestion and interstitial coarsening suggestive of pulmonary edema. 2. Small pleural effusions with bibasilar consolidation. 3. Right hemidiaphragmatic elevation. ACT 112: Negative or not required by law. The above report was generated using voice recognition software. It may contain grammatical, syntax or spelling errors. Electronically signed by: Raf Bustamante M.D. 04/21/2021 1:14 PM Discharge Plan Visit Data Chief Complaint: Shortness of Breath/Dyspnea Stated Complaint: SOB, UNABLE TO STAND, FLUID LEAKING OUT OF LEGS ED Provider: Danny Puckett Discharge Problem: Acute CHF, Cardiomyopathy, Orthopnea, Hypermagnesemia, Anemia, Elevated troponin Forms Stand Alone Forms: [facility] [place] Prescriptions Prescriptions: No Action potassium chloride 10 mEq tablet extended release 10 meq PO BID RF: 0 omega 7-iya-srz-fish oil [Fish Oil] 1,000 mg (120 mg-180 mg) capsule 1 cap PO BID RF: 0 Eliquis 5 mg tablet 5 mg PO BID Qty: 60 RF: 11 metolazone 5 mg tablet 5 mg PO DAILY PRN (Reason: Fluid Retention) Qty: 90 RF: 3 (DME) Wheeled Walker Misc See Rx Instructions .Route Qty: 1 RF: 0 albuterol sulfate [ProAir HFA] 90 mcg/actuation HFA aerosol inhaler See Rx Instructions INH .COMPLEX Qty: 25.5 RF: 3 colchicine 0.6 mg tablet 0.6 mg PO BID PRN (Reason: GOUT) Qty: 180 RF: 0 furosemide 20 mg tablet 40 - 80 mg PO DAILY PRN (Reason: weight gain & edema per Cardiology) RF: 0 cetirizine [Zyrtec] 10 mg tablet 10 mg PO DAILY RF: 0 lorazepam 0.5 mg tablet 0.5 - 1 mg PO BID PRN (Reason: anxiety) Qty: 60 RF: 1 allopurinol 100 mg tablet 100 - 200 mg PO Q2D RF: 0 atorvastatin 10 mg tablet 10 mg PO HS RF: 0 cholecalciferol (vitamin D3) 1,000 unit (25 mcg) tablet 1,000 units PO QAM RF: 0 Saccharomyces boulardii [Florastor] 250 mg Capsule 250 mg PO BID RF: 0 levothyroxine 125 mcg tablet 125 mcg PO DAILYBB RF: 0 glucosamine HCl 500 mg tablet 2,000 mg PO BID RF: 0 multivitamin Tablet 1 tab PO Q2D RF: 0 fluticasone propion-salmeterol [Wixela Inhub] 250-50 mcg/dose blister with device 2 inh INHALATION BID RF: 0 metoprolol succinate 100 mg tablet extended release 24 hr 50 mg PO HS RF: 0 calcium carbonate [Tums] 200 mg calcium (500 mg) Tablet,Chewable 200 mg PO BID RF: 0 Referrals Referrals: Chun Jurado MD [Primary Care Provider] -
[2021-04-21 13:08] LABS: Mean Corpuscular Hgb Conc 32.2 g/dL (32-36); Nucleated RBC # (auto) 0.03 K/uL (0-0); Nucleated RBC % (auto) 0.4 %
[2021-04-21] MEDS ORDERED: FUROSEMIDE 40 MG/4 ML VIAL IV STA (13:08)
--- NOTE | 2021-04-21 13:15 | XRay Report ---
XR chest 1V portable HISTORY: 75 years-old Male SOB acute shortness of breath COMPARISON: Chest radiographs 04/30/2020 TECHNIQUE: Portable AP view of the chest FINDINGS: Cardiac silhouette is enlarged. Left subclavian pacer/AICD. Right hemidiaphragmatic elevation. Small pleural effusions with bibasilar opacities. There is pulmonary vascular congestion with mild intersti tial coarsening. Degenerative changes of the shoulders and spine. IMPRESSION: 1. Cardiomegaly with pulmonary vascular congestion and interstitial coarsening suggestive of pulmonar y edema. 2. Small pleural effusions with bibasilar consolidation. 3. Right hemidiaphragmatic elevation. ACT 112: Negative or not required by law. The above report was generated using voice recognition software. It may contain grammatical, syntax o r spelling errors. Electronically signed by: Raf Bustamante M.D. 04/21/2021 1:14 PM
[2021-04-21 13:18] LABS: Hematocrit (blood only) 33.9 % (42-52); Hemoglobin 10.9 g/dL (14.0-18.0); INR 1.5 (0.9-1.1); Mean Corpuscular Hemoglobin 32.5 pg (25-34); Mean Corpuscular Volume 101.2 fL (80-100); Partial Thromboplastin Ratio 1.2; Partial Thromboplastin Time 31.5 Seconds (21.0-31.0); RDW Coefficient of Variation 16.3 % (11.5-14.5); Red Blood Count 3.35 M/uL (4.7-6.1); White Blood Count 7.07 K/uL (4.8-10.8)
[2021-04-21 13:24] LABS: Alanine Aminotransferase 30 (12-78); Aspartate Aminotransferase 42 U/L (15-37); BUN Creatinine Ratio 51.4 (10-20); Blood Urea Nitrogen 124 mg/dl (7-18); Calcium 9.4 mg/dl (8.5-10.1); Carbon Dioxide 28 mmol/L (21-32); Chloride 96 mmol/L (98-107); Est GFR (African American) 29.7 ml/min; Est GFR (Non-African American) 25.7 ml/min; Glucose 153 mg/dl (70-99); Magnesium 3.4 mg/dl (1.8-2.4); Potassium 4.5 mmol/L (3.5-5.1); Sodium 132 mmol/L (136-145)
[2021-04-21 13:31] LABS: Eosinophils # (auto) 0.02 K/uL (0-0.5); Eosinophils % (auto) 0.3 %; Immature Granulocytes # (auto) 0.02 K/uL (0.00-0.02); Immature Granulocytes % (auto) 0.3 %; Lymphocytes # (auto) 0.52 K/uL (1.2-3.4); Lymphocytes % (auto) 7.4 %; Mean Platelet Volume 13.2 fL (7.4-10.4); Monocytes # (auto) 0.18 K/uL (0.11-0.59); Monocytes % (auto) 2.5 %; Neutrophils # (auto) 6.33 K/uL (1.4-6.5); Neutrophils % (auto) 89.5 %; Platelet Count 137 K/uL (130-400); Platelet Estimate Decreased (Normal)
[2021-04-21 13:47] LABS: Albumin Globulin Ratio 0.8 (0.9-2); Alkaline Phosphatase 203 U/L (45-117); Globulin 3.9 gm/dl (2.5-4.0); Total Protein 6.9 gm/dl (6.4-8.2); Troponin I 0.149 ng/ml (0-0.045)
--- NOTE | 2021-04-21 14:15 | Electrocardiogram Report ---
Test Reason : Blood Pressure : / mmHG Vent. Rate : 108 BPM Atrial Rate : 092 BPM P-R Int : 000 ms QRS Dur : 050 ms QT Int : 414 ms P-R-T Axes : 000 000 076 degrees QTc Int : 554 ms Poor data quality, interpretation may be adversely affected Ventricular-paced rhythm with premature ventricular or aberrantly conducted complexes Abnormal ECG When compared with ECG of 26-FEB-2020 16:00, Vent. rate has increased BY 38 BPM Confirmed by Chun Gr ([id number]) on 04/21/2021 2:14:54 PM Referred By: Confirmed By:Chun Gr
[2021-04-21] MEDS ORDERED: STAT IV Infusion **Titration per Protocol STA (16:19)
--- NOTE | 2021-04-21 17:06 | History & Physical Report ---
Date of Service April 21, 2021 Assessment & Plan (1) Acute CHF: Plan: Mr. 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 ER with Decompensated Systolic CHF refractory to outpatient management. Over the past 3-4 weeks, he is very short of breath with minimal activity, his legs and abdomen are edematous and swollen, has had orthopnea, and has been a unable to sleep for the past 2 or 3 nights. Additionally, his leg edema has been so bad that he now has some weeping areas on his legs. Patient has not been weighing himself daily because he has been feeling poorly, but he knows that he is much heavier due to fluid retention now than he normally is. patient has been adjusting his Lasix home varying between 40-60 mg daily. Either of these doses does result in increased urine output, but his breathing is not improving. He developed congestive heart failure and left ventricular dysfunction in 2015. His ejection fraction was felt to be normal on March 05, 2014 with an ejection fraction of 55 to 60%, unchanged from 2009. However a subsequent echocardiogram done September 22, 2015 showed moderate left ventricular dysfunction with ejection fraction of 35% to 40% as well as severe concentric left ventricular hypertrophy. Another echocardiogram January 16, 2016 showed his ejection fraction to have fallen to 30%-35%. This was felt to be due possibly to amyloid, however urine and protein electrophoresis were unremarkable. He was started on diuretics, he did not initially tolerate beta blockers due to exacerbation of asthma therefore his lisinopril was titrated. He was already on digoxin.He eventually started on a beta toni and did not have any further bronchospasm. He was subsequently switched to Entresto and that was titrated to optimal dosing with discontinuation of lisinopril. An echocardiogram April 21, 2016 was interpreted as an ejection fraction of 35% to 40% and although there was some fluctuation over the next year and a half by December 2017 his ejection fraction was about 40%. Clinically he was doing very well over the summer 2018, working very hard doing [employer] and not having difficulty with heart failure symptoms. He did not seem to be bothered very much by the atrial fibrillation either. Repeat echocardiogram to see whether the Entresto was helping with his left ventricular function, that was done January 04, 2019 and it showed severe global hypokinesis with severe concentric left ventricular hypertrophy and ejection fraction of 20% to 25%. This was felt to be worse than December 2017. Left ventricle however was felt to be normal in size. Amyloid workup done and based on serum and urine protein electrophoreses it does not seem to be present. An echocardiogram prior to his visit on January 08, 2020 and this shows severe left ventricular dysfunction with ejection fraction of 25% to 30%. With ongoing and gradually worsening heart failure symptoms, progressive left ventricular dysfunction on optimal medical therapy, a left b undle branch pattern with a wide QRS complex -- a biventricular ICD was recommended and placed in February 2020. Entresto was subsequently discontinued due to hypotension. Following the placement of a Bi-V AICD his LV systolic function did not improve. Patient was referred to [facility] heart failure clinic for advanced heart failure therapies and recommendations. Patient was considering an LVAD and a possible cardiac transplant. He underwent genetic testing for tame amyloidosis and this was negative. He was supposed to undergo a PYP nuclear study and have a RHC with endomyocardial biopsy -- but the patient did not feel comfortable with his provider at [facility] so he did not go back for these additional tests. Patient decided that he wanted another opinion regarding his ongoing heart failure and poor biventricular systolic function, but first he wants to get out of heart failure at our facility and then he will pursue a 2nd opinion at [facility]. Recommend the followin. Admit to ICU. 2. IV Lasix 80 mg daily. 3. IV Milrinone drip with titration per protocol. 4. Continue Metoprolol Succinate ER 50 mg daily at bedtime. 5. Continue KCL supplement. 6. Monitor daily I&O's, body weights. 7. 2 gram low sodium diet. 8. 1500 ml fluid restriction. (2) Biventricular heart failure with reduced left ventricular function: Plan: -- Manage as outlined above. (3) ICD (implantable cardioverter-defibrillator), biventricular, in situ: Plan: -- BiV AICD implanted in February 2020, subsequent Echo showed no improvement in systolic function. (4) Cardiomyopathy: Plan: Concern for wild type cardiac amyloid. Patient was referred to [facility] heart failure clinic for advanced heart failure therapies and recommendations. Patient was considering an LVAD and a possible cardiac transplant. He underwent genetic testing for tame amyloidosis and this was negative. He was supposed to undergo a PYP nuclear study and have a RHC with endomyocardial biopsy -- but the patient did not feel comfortable with his provider at [facility] so he did not go back for these additional tests. Patient decided that he wanted another opinion regarding his ongoing heart failure and poor biventricular systolic function, but first he wants to get out of heart failure at our facility and then he will pursue a 2nd opinion at [facility]. (5) Atrial fibrillation and flutter: Plan: -- Underlying rhythm appears to be A-fib, but he is paced from both ventricles most of the time. (6) Cardiorenal syndrome: Plan: -- Serum creatinine is 2.41 mg/dL which is likely made worse by low output cardiac failure. -- Monitor daily labs. History of Present Illness Chief Complaint: -- Decompensated Systolic CHF. -- Cardiorenal Syndrome. 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 -- Elevated Troponin I. Primary Care Provider: Chun Jurado MD Mr. 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 ER with Decompensated Systolic CHF refractory to outpatient management. Patient states that over past 3-4 weeks, he is very short of breath with minimal activity, his legs and abdomen are edematous and swollen, has had orthopnea, and has been a unable to sleep for the past 2 or 3 nights. Additionally, his leg edema has been so bad that he now has some weeping areas on his legs. Patient has not been weighing himself daily because he has been feeling poorly, but he k nows that he is much heavier due to fluid retention now than he normally is. patient has been adjusting his Lasix home varying between 40-60 mg daily. Either of these doses does result in increased urine output, but his breathing is not improving. Patient offers no other complaints. He denies any exertional chest pain, heaviness, tightness, pressure, or discomfort. He denies any neck, jaw, back, or arm pain. He denies any palpitations, syncope, or near syncope. Patient denies nausea, vomiting, diaphoresis, or any recent illnesses otherwise. Patient is compliant with his medications and has not had any adverse effects. Patient had not been using metolazone recently because of his worsened renal function. HISTORICAL BACKGROUND: Patient underwent cardiac catheterization at [facility] on May 17, 2014 which showed nonobstructive coronary artery disease including a 50% proximal LAD stenosis (FFR proven nonobstructive) and luminal irregularities in the RCA.He developed congestive heart failure and left ventricular dysfunction in 2015. His ejection fraction was felt to be normal on March 05, 2014 with an ejection fraction of 55 to 60%, unchanged from 2009. However a subsequent echocardiogram done September 22, 2015 showed moderate left ventricular dysfunction with ejection fraction of 35 to 40% as well as severe concentric left ventricular hypertrophy. Another echocardiogram January 16, 2016 showed his ejection fraction to have fallen to 30-35%. This was felt to be due possibly to amyloid, however urine and protein electrophoresis were unremarkable. He was started on diuretics, he did not initially tolerate beta blockers due to exacerbation of asthma therefore his lisinopril was titrated. He was already on digoxin.He eventually started on a beta toni and did not have any further bronchospasm. He was subsequently switched to Entresto and that was titrated to optimal dosing with discontinuation of lisinopril. An echocardiogram April 21, 2016 was interpreted as an ejection fraction of 35 to 40% and although there was some fluctuation over the next year and a half by December 2017 his ejection fraction was about 40%. Clinically he was doing very well over the summer 2018, working very hard doing [employer] and not having difficulty with heart failure symptoms. He did not seem to be bothered very much by the atrial fibrillation either. Repeat echocardiogram to see whether the Entresto was helping with his left ventricular function, that was done January 04, 2019 and it showed severe global hypokinesis with severe concentric left ventricular hypertrophy and ejection fraction of 20% to 25%. This was felt to be worse than December 2017. Left ventricle however was felt to be normal in size. Amyloid workup done and based on serum and urine protein electrophoreses it does not seem to be present. An echocardiogram prior to his visit on January 08, 2020 and this shows severe left ventricular dysfunction with ejection fraction of 25% to 30%. With ongoing and gradually worsening heart failure symptoms, progressive left ventricular dysfunction on optimal medical therapy, a left bundle branch pattern with a wide QRS complex -- a biventricular ICD was recommended and placed in February 2020. Following the placement of a Bi-V AICD his LV systolic function did not improve. Patient was referred to [facility] heart failure clinic for advanced heart failure therapies and recommendations. Patient was considering an LVAD and a possible cardiac transplant. He underwent genetic testing for tame amyloidosis and this was negative. He was supposed to undergo a PYP nuclear study and have a RHC with endomyocardial biopsy -- but the patient did not feel comfortable with his provider at [facility] so he did not go back for these additional tests. Patient decided that he wanted another opinion regarding his ongoing heart failure and poor biventricular systolic function, but first he wants to get out of heart failure at our facility and then he will pursue a 2nd opinion at [facility]. Recent cardiac studies: ECHOCARDIOGRAM 05/08/20: -- Normal LV size, severely reduced EF, 25%-30%. Akinesis of the inferolateral and base to mid anterolateral wall segments. Severe concentric LVH. Moderately dilated RV with severely reduced systolic function. Severe biatrial dilation. Mild MR. Trace pericardial effusion. Normal RVSP. ECHOCARDIOGRAM 12/29/20: Normal LV size, severely reduced systolic function. EF 25-30%. Global hypokinesis. Severe concentric LVH. Findings suspicious for cardiac amyloidosis. Mildly dilated RV with severely reduced systolic function. Severe biatrial dilation. Mild-mod MR. Trace pericardial effusion. Normal RVSP. Allergies Allergy/AdvReac Type Severity Reaction Status Date / Time cat dander Allergy Unknown ITCHY EYES Verified 04/21/21 13:30 No Known Drug Allergies Allergy Unknown NONE Verified 04/21/21 13:30 ragweed pollen Allergy Unknown asthma Verified 04/21/21 13:30 symptoms,dizziness,lethargy Home Medications Medication Instructions Recorded Confirmed Type colchicine 0.6 mg tablet 0.6 mg PO BID PRN #180 tab 11/23/18 04/21/21 Rx apixaban 5 mg tablet (Eliquis) 5 mg PO BID #60 tab 09/05/20 04/21/21 Rx omega 0-eip-qpq-fish oil 1,000 mg 1 cap PO BID 09/12/20 04/21/21 History (120 mg-180 mg) capsule (Fish Oil) potassium chloride 10 mEq 10 meq PO BID tab 09/12/20 04/21/21 History tablet,extended release cetirizine 10 mg tablet (Zyrtec) 10 mg PO DAILY 12/29/20 04/21/21 History furosemide 20 mg tablet 40 - 80 mg PO DAILY PRN tab 12/29/20 04/21/21 History metolazone 5 mg tablet 5 mg PO DAILY PRN #90 tab 01/18/21 04/21/21 Rx lorazepam 0.5 mg tablet 0.5 - 1 mg PO BID PRN #60 tab 02/27/21 04/21/21 Rx Wheeled Walker #1 ea 03/23/21 Rx albuterol sulfate 90 mcg/actuation See Rx Instructions INH .COMPLEX 03/31/21 04/21/21 Rx aerosol inhaler (ProAir HFA) #25.5 gm Saccharomyces boulardii 250 mg 250 mg PO BID 04/21/21 04/21/21 History capsule (Florastor) allopurinol 100 mg tablet 100 - 200 mg PO Q2D 04/21/21 04/21/21 History atorvastatin 10 mg tablet 10 mg PO HS 04/21/21 04/21/21 History calcium carbonate 200 mg calcium 200 mg PO BID 04/21/21 04/21/21 History (500 mg) chewable tablet (Tums) cholecalciferol (vitamin D3) 25 1,000 units PO QAM 04/21/21 04/21/21 History mcg (1,000 unit) tablet fluticasone 250 mcg-salmeterol 50 2 inh INHALATION BID 04/21/21 04/21/21 History mcg/dose blistr powdr for inhalation (Wixela Inhub) glucosamine HCl 500 mg tablet 2,000 mg PO BID 04/21/21 04/21/21 History levothyroxine 125 mcg tablet 125 mcg PO DAILYBB 04/21/21 04/21/21 History metoprolol succinate 100 mg 50 mg PO HS 04/21/21 04/21/21 History tablet,extended release 24 hr multivitamin 1 tab PO Q2D 04/21/21 04/21/21 History Past Med/Surg History Medical History Allergic rhinitis Asthma Atrial fibrillation and flutter Cardiomyopathy Chronic systolic (congestive) heart failure Gout, joint History of cerebral embolism Hyperlipidemia Hypertension Hypothyroidism Leg wound, right On anticoagulant therapy Osteoarthritis Palpitations Supraventricular tachycardia Surgical History History of bilateral carpal tunnel release History of knee surgery History of lumbar surgery Hx of tonsillectomy Family History Mother Breast cancer Brother Coronary heart disease Denies family history of Colon cancer Ovarian cancer Prostate cancer Social History Smoking Status: Former smoker Second Hand Exposure: No; Do You Dip or Chew Tobacco: No; Hx Alcohol Use: No Hx Substance Use: No Preferred Language: Spanish Communication Ability: Effective Visual Impairment: No Limitations Hearing Ability: Hard of Hearing Transfer Specialist Required: No Beliefs That Will Affect Care: None marital status: Current Living Situation: Spouse current occupational status: retired Other Information That Helps Us Care for You: No Feels Safe at Home: Yes Safety Concerns: Feels Safe At This Time Childhood Exposure to Second-Hand Smoke: No Dental Care, Regularly: No Physical Activity Frequency: Daily Seatbelt Use: always Sunscreen Use: Yes Assistive Devices: Walker Review of Systems Review of Systems: Ten point ROS was completed and is negative with the exception of what's mentioned in the HPI. Physical Exam Physical Exam: GENERAL: Chronically ill appearing male in mild distress. HEENT: Head is atraumatic, normocephalic. EOM's intact. Facies symmetric. No perioral cyanosis. NECK: Marked JVD. JVP is elevated to the angle of the jaw. Carotid upstrokes are + 2 bilaterally. No bruits are noted. CHEST/LUNGS: Diminished breath sounds in bilateral bases, scattered rales in the lower and mid lung zones. CVS: S1 and S2 are slightly irregular at 95 bpm without obvious murmurs, gallops, or rubs. PMI is laterally displaced. No lifts, heaves, or thrills. No abdominal aortic or renal bruits. ABDOMINAL EXAM: Bowel sounds are present. No masses, organomegaly, or tenderness. +2 pitting edema to the umbilicus. EXTREMITIES: No clubbing or cyanosis. Intact radial pulses bilaterally. +3 bipedal edema extending to the distal thigh, +2 pitting edema to hips bilaterally. Bilateral legs are dressed. NEUROLOGIC EXAM: Patient is awake, alert, and oriented. Pleasant and cooperative. Answers questions appropriately. Speech is clear but difficulty completing sentences ue to dyspnea. Normal movement in all 4 extremities. Gait pattern was not assessed. Pacu Nurse: -- V-paced rhythm with PVC's vs aberrant conduction. EKG 04/21/21: -- V-paced rhythm with PVC's vs aberrant conduction. -- When compared to 02/26/20 tracing; V rate has increased by 38 bpm. Results & Data Results & Data ([facility]) Vital Signs (Past 12 Hours) Vital Signs Pulse Pulse Resp BP BP Pulse Ox 04/21/21 15:15 76 73 20 96/69 L 98 04/21/21 14:03 70 24 100/79 98 04/21/21 13:33 99 04/21/21 13:08 70 70 26 H 86/69 L 99 04/21/21 12:15 90 20 102/64 98 Laboratory Results Laboratory Results - last 24 hr 04/21/21 04/21/21 04/21/21 12:55 12:55 12:55 WBC 7.07 RBC 3.35 L Hgb 10.9 L Hct 33.9 L MCV 101.2 H MCH 32.5 MCHC 32.2 RDW Std Deviation 60.0 H RDW Coeff of Janes 16.3 H Plt Count 137 MPV 13.2 H Immature Gran % (Auto) 0.3 Neut % (Auto) 89.5 Lymph % (Auto) 7.4 Mineral % (Auto) 2.5 Eos % (Auto) 0.3 Baso % (Auto) 0.0 Neut # (Auto) 6.33 Lymph # (Auto) 0.52 L Mineral # (Auto) 0.18 Eos # (Auto) 0.02 Baso # (Auto) 0.00 Immature Gran # (Auto) 0.02 Absolute Nucleated RBC 0.03 H Nucleated RBC % (auto) 0.4 Platelet Estimate Decreased L PT 15.0 H INR 1.5 H APTT 31.5 H PTT Ratio 1.2 Sodium 132 L Potassium 4.5 Chloride 96 L Carbon Dioxide 28 Anion Gap 8.0 BUN 124 H Creatinine 2.41 H Est Cr Clr Drug Dosing Not Reportable Est GFR ( Amer) 29.7 Est GFR (Non-Af Amer) 25.7 BUN/Creatinine Ratio 51.4 H Glucose 153 H Calcium 9.4 Magnesium 3.4 H Total Bilirubin Pending AST 42 H ALT 30 Alkaline Phosphatase 203 H D Ammonia Troponin I 0.149 H* NT-Pro-B Natriuret Pep Total Protein 6.9 Albumin 3.0 L Globulin 3.9 Albumin/Globulin Ratio 0.8 L 04/21/21 04/21/21 12:55 13:18 WBC RBC Hgb Hct MCV MCH MCHC RDW Std Deviation RDW Coeff of Janes Plt Count MPV Immature Gran % (Auto) Neut % (Auto) Lymph % (Auto) Mineral % (Auto) Eos % (Auto) Baso % (Auto) Neut # (Auto) Lymph # (Auto) Mineral # (Auto) Eos # (Auto) Baso # (Auto) Immature Gran # (Auto) Absolute Nucleated RBC Nucleated RBC % (auto) Platelet Estimate PT INR APTT PTT Ratio Sodium Potassium Chloride Carbon Dioxide Anion Gap BUN Creatinine Est Cr Clr Drug Dosing Est GFR ( Amer) Est GFR (Non-Af Amer) BUN/Creatinine Ratio Glucose Calcium Magnesium Total Bilirubin AST ALT Alkaline Phosphatase Ammonia 23.6 Troponin I NT-Pro-B Natriuret Pep 86440 H Total Protein Albumin Globulin Albumin/Globulin Ratio Diagnostic Findings CXR 04/21/21: Cardiac silhouette is enlarged. Left subclavian pacer/AICD. Right hemidiaphragmatic elevation. Small pleural effusions with bibasilar opacities. There is pulmonary vascular congestion with mild interstitial coarsening. Degenerative changes of the shoulders and spine. IMPRESSION: 1. Cardiomegaly with pulmonary vascular congestion and interstitial coarsening suggestive of pulmonary edema. 2. Small pleural effusions with bibasilar consolidation. 3. Right hemidiaphragmatic elevation. Medications Administered Medications colchicine 0.6 mg tablet 0.6 mg PO BID PRN #180 tab 11/23/18 [Rx Confirmed 04/21/21] apixaban 5 mg tablet (Eliquis) 5 mg PO BID #60 tab 09/05/20 [Rx Confirmed 04/21/21] omega 9-hgu-ewk-fish oil 1,000 mg (120 mg-180 mg) capsule (Fish Oil) 1 cap PO BID 09/12/20 [History Confirmed 04/21/21] potassium chloride 10 mEq tablet,extended release 10 meq PO BID tab 09/12/20 [History Confirmed 04/21/21] cetirizine 10 mg tablet (Zyrtec) 10 mg PO DAILY 12/29/20 [History Confirmed 04/21/21] furosemide 20 mg tablet 40 - 80 mg PO DAILY PRN tab 12/29/20 [History Confirmed 04/21/21] metolazone 5 mg tablet 5 mg PO DAILY PRN #90 tab 01/18/21 [Rx Confirmed 04/21/21] lorazepam 0.5 mg tablet 0.5 - 1 mg PO BID PRN #60 tab 02/27/21 [Rx Confirmed 04/21/21] Wheeled Walker #1 ea 03/23/21 [Rx] albuterol sulfate 90 mcg/actuation aerosol inhaler (ProAir HFA) See Rx Instructions INH .COMPLEX #25.5 gm 03/31/21 [Rx Confirmed 04/21/21] Saccharomyces boulardii 250 mg capsule (Florastor) 250 mg PO BID 04/21/21 [History Confirmed 04/21/21] allopurinol 100 mg tablet 100 - 200 mg PO Q2D 04/21/21 [History Confirmed 04/21/21] atorvastatin 10 mg tablet 10 mg PO HS 04/21/21 [History Confirmed 04/21/21] calcium carbonate 200 mg calcium (500 mg) chewable tablet (Tums) 200 mg PO BID 04/21/21 [History Confirmed 04/21/21] cholecalciferol (vitamin D3) 25 mcg (1,000 unit) tablet 1,000 units PO QAM 04/21/21 [History Confirmed 04/21/21] fluticasone 250 mcg-salmeterol 50 mcg/dose blistr powdr for inhalation (Wixela Inhub) 2 inh INHALATION BID 04/21/21 [History Confirmed 04/21/21] glucosamine HCl 500 mg tablet 2,000 mg PO BID 04/21/21 [History Confirmed 04/21/21] levothyroxine 125 mcg tablet 125 mcg PO DAILYBB 04/21/21 [History Confirmed 04/21/21] metoprolol succinate 100 mg tablet,extended release 24 hr 50 mg PO HS 04/21/21 [History Confirmed 04/21/21] multivitamin 1 tab PO Q2D 04/21/21 [History Confirmed 04/21/21] Code Status & VTE Plan Code Status Full Code Supervising Physician Co-Signing Physician Notes PA Supervision Note: I personally saw and examined the patient. I verified all franco points and agree with LARS Portillo with the following exceptions and/or additions: This patient is a 75-year-old male with history of progressively worsening nonischemic cardiomyopathy with EF down to 20%, suspected amyloidosis, and currently undergoing work-up for advanced therapies for heart failure including LVAD. Patient has been having progressively worsening shortness of breath to the point where he can barely move without dyspnea. He is edematous all over and very weak. No chest pain. In the ER, he did not want to be transferred to another hospital at this time. He his goal is to get somewhat symptomatically improved and then he has an appointment in 2 weeks with the advanced therapies heart failure group at [facility] in [place]. His hope is that he will have the type of amyloidosis that can be treated with a newer drug as he does not want to pursue LVAD. The [place] heart failure specialist said that due to his age, he is not a candidate for cardiac transplant. History and ROS reviewed as above Vitals reviewed Gen: AAOx3, with dyspnea at rest, appears chronically very ill, muscle wasting in trunk and sarcopenia in extremities HEENT: Anicteric sclerae, EOMI CV: Regular rate and rhythm, difficult to auscultate heart sounds, 2/6 systolic murmur at left lower sternal border Pulm: Bibasilar crackles, tachypnea at rest Abd: +BS soft NT ND no masses or hernias Ext: Anasarca Skin: Extremities with mottling, large ecchymosis on left shoulder Neuro: Full strength throughout Laboratory values, radiology studies, ECG all reviewed 75-year-old male here with acute on chronic systolic CHF, end-stage with cardiorenal syndrome -Attempt diuresis with IV Lasix -Admit to ICU and started on milrinone Cardiology consult appreciated [employer] management appreciated May need vasopressors given relative hypotension Place Fam catheter as he is having incontinence and having great dyspnea even with minimal movement in the bed to urinate and also will be helpful to measure I's and O's-patient warned of risk of UTI but is accepting of this Very poor prognosis overall PG Care Time/CCT Total # of Minutes Spent Total Time Spent with Patient: Total time spent is greater than 50% in coordination of care (as documented) at patient's floor/unit and/or counseling patient:53 Coding Level of Care Code 21446 Initial Inpt Care Lvl 3 Diagnoses Acute CHF I50.9 Heart failure type: unspecified Biventricular heart failure with reduced left ventricular function I50.814 ICD (implantable cardioverter-defibrillator), biventricular, in situ Z95.810 Cardiomyopathy I42.9 Cardiomyopathy type: unspecified Atrial fibrillation and flutter I48.91; I48.92 Cardiorenal syndrome I13.10 Time Spent (min) 75 (1) Acute CHF Heart failure type: unspecified Qualified Code(s): I50.9 - Heart failure, unspecified (2) Cardiomyopathy Cardiomyopathy type: unspecified Qualified Code(s): I42.9 - Cardiomyopathy, unspecified
--- NOTE | 2021-04-21 17:57 | Critical Care Consultation ---
Date of Consultation April 21, 2021 Assessment & Plan (1) Acute CHF: (2) Orthopnea: (3) NATALIYA (acute kidney injury): (4) Pleural effusion: Chest x-ray 04/21/2021 personally reviewed: Portable film, large right-sided pleural effusion, increased cardiac silhouette, left-sided AICD Blunting of bilateral costophrenic and cardiophrenic angles. --Shortness of breath Secondary to acute on chronic CHF exacerbation BNP 10,500 COVID-19 PCR negative Patient to be started on milrinone Okay to continue metoprolol given the milrinone is not affecting beta receptors Continue with Lasix Strict ins and outs, keep the patient negative balance BiPAP nightly and as needed shortness of breath -- NATALIYA Likely cardiorenal with a renal component Follow-up urine lites Monitor BUN/creatinine Avoid nephrotoxic medications Strict ins and outs --Hyponatremia with hypochloremia Hypervolemic likely from underlying CHF along with diuretic use Follow-up serum osmolality --Bilateral pleural effusion Cardiology is chronic CHF Patient is not in any respiratory distress No indication for thoracentesis currently Continue with diuretics --Elevated troponin Likely type II AL EKG 04/21/2021: Ventricular paced rhythm, multiple artifacts, poor quality Continue to monitor --Elevated alk phos with mild elevation in AST Chronically elevated, likely from passive congestion from underlying CHF Continue to monitor --History of A. fib Rate control On apixaban at home --Prophylaxis VTE: Apixaban GI: None Lines: Peripheral Diet: Cardiorenal Plan: Continue with milrinone as per cardiology recommendations It is arrhythmogenic keep an eye on patient's rhythm Patient might get hypotensive. Would recommend to keep the MAP > 60 given the severely decreased EF If the patient does get hypotensive may consider starting phenylephrine again keeping the map between 60-65 as you do not want to increase afterload BiPAP with EPAP of 8 would help with increasing ejection fraction by increasing transmyocardial pressure gradient Case was discussed with me by Shlomo Portillo PA-C I have personally spent 51 minutes of critical care time in the direct manageme nt of this patient. This is a life/limb threatening event. This includes time spent evaluating sumit ent, direct bedside care, chart review, placing orders, interpretation of diagnostic studies, discussion with consultants, patient, and family members, as well as other required patient management activities. This time is exclusive of all separately billable procedures, and teaching time and separate from and in addition to any other critical care service time. Please note the above document was generated using voice recognition software. It may contain grammatical, syntax or spelling errors. History of Present Illness History of Present Illness 75-year-old male past medical history of cardiomyopathy EF 25-30% s/p AICD, nonobstructive CAD coronary artery disease, A. fib, CKD, hypothyroidism presented to hospital with worsening lower extremity edema and orthopnea. Patient will be started on milrinone drip to help with diuresis. Patient will be in the ICU for the milrinone drip. At the time of examination patient was saturating 99% on room air Patient denied any chest pain, he denied any significant shortness of breath. He is very frail appearing he was sleeping before I came and saw the patient Denies any cough, no headache, no blurry vision, no dizziness. He states that has been urinating well. No nausea or vomiting. Denies any dysuria or diarrhea prior to coming to the hospital No fever or chills Allergies Allergy/AdvReac Type Severity Reaction Status Date / Time cat dander Allergy Unknown ITCHY EYES Verified 04/21/21 13:30 No Known Drug Allergies Allergy Unknown NONE Verified 04/21/21 13:30 ragweed pollen Allergy Unknown asthma Verified 04/21/21 13:30 symptoms,dizziness,lethargy Home Medications Medication Instructions Recorded Confirmed Type colchicine 0.6 mg tablet 0.6 mg PO BID PRN #180 tab 11/23/18 04/21/21 Rx apixaban 5 mg tablet (Eliquis) 5 mg PO BID #60 tab 09/05/20 04/21/21 Rx omega [id number]-cgu-[id number]-fish oil 1,000 mg 1 cap PO BID 09/12/20 04/21/21 History (120 mg-180 mg) capsule (Fish Oil) potassium chloride 10 mEq 10 meq PO BID tab 09/12/20 04/21/21 History tablet,extended release cetirizine 10 mg tablet (Zyrtec) 10 mg PO DAILY 12/29/20 04/21/21 History furosemide 20 mg tablet 40 - 80 mg PO DAILY PRN tab 12/29/20 04/21/21 History metolazone 5 mg tablet 5 mg PO DAILY PRN #90 tab 01/18/21 04/21/21 Rx lorazepam 0.5 mg tablet 0.5 - 1 mg PO BID PRN #60 tab 02/27/21 04/21/21 Rx Wheeled Walker #1 ea 03/23/21 Rx albuterol sulfate 90 mcg/actuation See Rx Instructions INH .COMPLEX 03/31/21 04/21/21 Rx aerosol inhaler (ProAir HFA) #25.5 gm Saccharomyces boulardii 250 mg 250 mg PO BID 04/21/21 04/21/21 History capsule (Florastor) allopurinol 100 mg tablet 100 - 200 mg PO Q2D 04/21/21 04/21/21 History atorvastatin 10 mg tablet 10 mg PO HS 04/21/21 04/21/21 History calcium carbonate 200 mg calcium 200 mg PO BID 04/21/21 04/21/21 History (500 mg) chewable tablet (Tums) cholecalciferol (vitamin D3) 25 1,000 units PO QAM 04/21/21 04/21/21 History mcg (1,000 unit) tablet fluticasone 250 mcg-salmeterol 50 2 inh INHALATION BID 04/21/21 04/21/21 History mcg/dose blistr powdr for inhalation (Wixela Inhub) glucosamine HCl 500 mg tablet 2,000 mg PO BID 04/21/21 04/21/21 History levothyroxine 125 mcg tablet 125 mcg PO DAILYBB 04/21/21 04/21/21 History metoprolol succinate 100 mg 50 mg PO HS 04/21/21 04/21/21 History tablet,extended release 24 hr multivitamin 1 tab PO Q2D 04/21/21 04/21/21 History Patient History Medical History Allergic rhinitis Asthma Atrial fibrillation and flutter Cardiomyopathy Chronic systolic (congestive) heart failure Gout, joint History of cerebral embolism Hyperlipidemia Hypertension Hypothyroidism Leg wound, right On anticoagulant therapy Osteoarthritis Palpitations Supraventricular tachycardia Surgical History History of bilateral carpal tunnel release History of knee surgery History of lumbar surgery Hx of tonsillectomy Family History Mother Breast cancer Brother Coronary heart disease Denies family history of Colon cancer Ovarian cancer Prostate cancer Social History Smoking Status: Former smoker Second Hand Exposure: No; Do You Dip or Chew Tobacco: No; Hx Alcohol Use: No Hx Substance Use: No Preferred Language: [place] Communication Ability: Effective Visual Impairment: No Limitations Hearing Ability: Hard of Hearing Community Development Specialist Required: No Beliefs That Will Affect Care: None marital status: Current Living Situation: Spouse current occupational status: retired Other Information That Helps Us Care for You: No Feels Safe at Home: Yes Safety Concerns: Feels Safe At This Time Childhood Exposure to Second-Hand Smoke: No Dental Care, Regularly: No Physical Activity Frequency: Daily Seatbelt Use: always Sunscreen Use: Yes Assistive Devices: Walker Review of Systems Review of Systems: All systems reviewed & are unremarkable except as noted in HPI & below Physical Exam Physical Exam: Constitutional: No acute distress HEENT: EOMI, PERRLA Respiratory system: Decreased air entry bilaterally, no wheeze, rhonchi, positiv e crackles bilateral lower lobes CVS: S1-S2 positive, distant heart sound, accentuated P2, left-sided AICD Abdomen: Soft, nontender, nondistended, positive bowel sounds x4 Extremities: +2 pulses bilaterally radialis/ dorsalis pedis, no cyanosis, +2 p itting edema bilateral lower extremity Neuro: Awake alert oriented x3 Psych: Normal mood and affect G/U: Positive Fam Skin: no rashes, warm and dry Lymphatic: no cervical or axillary lymphadenopathy Results & Data Results & Data ([facility]) Vital Signs (Past 12 Hours) Vital Signs Pulse Pulse Resp BP BP Pulse Ox 04/21/21 16:24 72 20 94/70 L 99 04/21/21 15:15 76 73 20 96/69 L 98 04/21/21 14:03 70 24 100/79 98 04/21/21 13:33 99 04/21/21 13:08 70 70 26 H 86/69 L 99 04/21/21 12:15 90 20 102/64 98 04/21/21 12:55 04/21/21 12:55 Coding Level of Care Code Critical Care 1st 30-74 mins Diagnoses Acute CHF I50.9 Heart failure type: unspecified Orthopnea R06.01 NATALIYA (acute kidney injury) N17.9 Pleural effusion J90 Time Spent (min) 51 (1) Acute CHF Heart failure type: unspecified Qualified Code(s): I50.9 - Heart failure, unspecified
[2021-04-21 18:14] LABS: Appearance Urine Clear (Clear); Bilirubin Urine Negative (Negative); Blood Urine Negative (Negative); Color Urine Yellow; Glucose Urine UA Negative (Negative); Ketones Urine Negative (Negative); Leukocyte Esterase Urine Negative (Negative); Nitrite Urine Negative (Negative); Protein Urine Negative (Negative); Specific Gravity Urine 1.014 (1.000-1.030); Urobilinogen Urine Negative (Negative)
[2021-04-21 18:40] LABS: Creatinine Urine Random 48.9 mg/dl; Potassium Random Urine 50.2 mmol/L
[2021-04-21] MEDS ORDERED: LORazepam 0.5 MG TAB PO PRN (19:00)
[2021-04-21] MEDS ORDERED: allopurinoL 100 MG TAB PO SCH (19:00)
[2021-04-21] MEDS ORDERED: ALBUTEROL HFA 8 GM INHALER INH PRN (19:00)
[2021-04-21] MEDS ORDERED: ICU PROTOCOL FOR HYPERGLYCEMIA PRN (19:00)
[2021-04-21] MEDS: MILRINONE LACTATE/D5W 20,000 MCG/100 ML BAG IV SCH (20:15)
[2021-04-21] MEDS: ATORVASTATIN 10 MG TAB PO SCH (20:42)
[2021-04-21] MEDS: APIXABAN 5 MG TABLET PO SCH (20:42)
[2021-04-21] MEDS: CALCIUM CARBONATE 500 MG CHEWABLE TAB PO SCH (20:43)
[2021-04-21] MEDS: GLUCOSAMINE SULFATE 500 MG CAP PO SCH (20:44)
[2021-04-21] MEDS: OMEGA-3 (PURIFIED FISH OIL) 1 GM CAP PO SCH (20:44)
[2021-04-21] MEDS: POTASSIUM CHLORIDE 10 MEQ TABCR PO SCH (20:45)
[2021-04-21] MEDS: SACCHAROMYCES BOULARDII 250 MG CAP PO SCH (20:45)
[2021-04-21] MEDS ORDERED: FLUTICASONE/SALMETEROL 250/50 (ADVAIR) 14 PUFF/1 INHALER INH SCH (21:00)
[2021-04-21] MEDS: METOPROLOL SUCC 50MG EXT REL TAB PO SCH (21:29)
[2021-04-21 22:54] LABS: Bilirubin,Total 2.1 mg/dl (0.2-1)
[2021-04-22 04:58] LABS: Calcium 9.3 mg/dl (8.5-10.1); Creatinine Clr Calc Pharmacy 32.7 ml/min; Est GFR (African American) 34.3 ml/min; Est GFR (Non-African American) 29.6 ml/min; Magnesium 3.2 mg/dl (1.8-2.4); Phosphorus 3.4 mg/dl (2.5-4.9); Potassium 4.3 mmol/L (3.5-5.1)
[2021-04-22 05:05] LABS: Eosinophils # (auto) 0.03 K/uL (0-0.5); Eosinophils % (auto) 0.5 %; Hematocrit (blood only) 30.1 % (42-52); Hemoglobin 9.7 g/dL (14.0-18.0); Immature Granulocytes # (auto) 0.02 K/uL (0.00-0.02); Immature Granulocytes % (auto) 0.3 %; Lymphocytes # (auto) 0.55 K/uL (1.2-3.4); Lymphocytes % (auto) 9.1 %; Mean Corpuscular Hgb Conc 32.2 g/dL (32-36); Mean Corpuscular Volume 99.3 fL (80-100); Monocytes # (auto) 0.36 K/uL (0.11-0.59); Monocytes % (auto) 5.9 %; Neutrophils % (auto) 84.2 %; Platelet Count 125 K/uL (130-400); Platelet Estimate Decreased (Normal); RBC Morphology Unremarkable; RDW Coefficient of Variation 16.1 % (11.5-14.5); RDW Standard Deviation 58.5 fL (36.4-46.3); Red Blood Count 3.03 M/uL (4.7-6.1); White Blood Count 6.06 K/uL (4.8-10.8)
[2021-04-22] MEDS: LEVOTHYROXINE SODIUM 125 MCG TABLET PO SCH (05:55)
--- NOTE | 2021-04-22 08:07 | XRay Report ---
XR chest 1V portable HISTORY: Respiratory failure. COMPARISON: Chest 04/21/2021. FINDINGS: Left-sided pacemaker/defibrillator is again noted. No pneumothorax. The heart remains enlar ged. Moderate right and small left pleural effusions persist. Right basilar consolidation and elevate d right hemidiaphragm are again noted. There is perihilar interstitial/vascular thickening consistent with mild congestive change. IMPRESSION: 1. No change in the mild congestive change and bilateral pleural effusions. 2. Cardiomegaly and bibasilar densities persist. ACT 112: Negative or not required by law. Electronically signed by: Marquez Barker M.D. 04/22/2021 8:06 AM
[2021-04-22] MEDS: GLUCOSAMINE SULFATE 500 MG CAP PO SCH ×2 (08:13→21:36)
[2021-04-22] MEDS: allopurinoL 100 MG TAB PO SCH (08:14)
[2021-04-22] MEDS: OMEGA-3 (PURIFIED FISH OIL) 1 GM CAP PO SCH ×2 (08:14→21:35)
[2021-04-22] MEDS: CETIRIZINE HCL 10 MG TABLET PO SCH (08:14)
[2021-04-22] MEDS: POTASSIUM CHLORIDE 10 MEQ TABCR PO SCH (08:14)
[2021-04-22] MEDS: SACCHAROMYCES BOULARDII 250 MG CAP PO SCH ×2 (08:14→21:36)
[2021-04-22] MEDS: APIXABAN 5 MG TABLET PO SCH (08:14)
[2021-04-22] MEDS: CALCIUM CARBONATE 500 MG CHEWABLE TAB PO SCH ×2 (08:16→21:35)
[2021-04-22] MEDS: FLUTICASONE/VILANTEROL 200/25MCG 14 PUFFS/INHALER INH SCH (08:16)
[2021-04-22] MEDS: CHOLECALCIFEROL 1,000 UNITS 25 MCG TAB PO SCH (08:16)
--- NOTE | 2021-04-22 08:51 | Cardiology Consultation ---
Date of Consultation April 22, 2021 Assessment & Plan (1) Acute on chronic systolic CHF (congestive heart failure), NYHA class 4: (2) Cardiorenal syndrome: (3) Cardiomyopathy: (4) Atrial fibrillation, permanent: (5) Anticoagulant long-term use: History of Present Illness Reason for Consultation: CHF, cardiomyopathy Attending Physician: Devika Haider MD History of Present Illness This is a 75-year-old gentleman who had a long history of reentrant SVT. He was followed at [facility] for many years and about 2004 switched to our practice. 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 In retrospect his CVA was probably due to unrecognized atrial fibrillation. Post cardioversion he developed SVT at a rate of about 120 beats per minute which appeared to be typical AV jus reentry and was terminated with adenosine. 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 Following ablation he had no further symptoms until around March 21, 2010 when he developed recurrent palpitations and on March 25, 2010 we documented return of atrial fibrillation. He had no symptoms suggestive of SVT triggering it therefore the ablation appeared to be successful for his AVNRT but unfortunately he has recurrent atrial fibrillation (which is common, we had hoped SVT ablation would eliminate the atrial arrhythmia but it did not). He was very symptomatic with the arrhythmia (although the rate was well-controlled) therefore we opted to attempt maintenance of sinus rhythm with medications initially. He failed treatment with Multaq, flecainide and ultimately we performed atrial fibrillation ablation at [place]. His first ablation was 01/28/2011, the details of his early medical therapy and his ablation attempts are detailed in my letter of 04/24/2014. In all he required 3 A. fib ablations, the last of which was performed on 08/03/2014. He had early recurrence however and it was felt that further catheter ablation attempts would not be worthwhile. He still felt very uncomfortable during atrial fibrillation and wanted very much to be in sinus rhythm, therefore we pursued attempts at finding a place which would do a minimally invasive maze procedure. He was seen at [facility] and subsequently at [place], however it was felt that he needed an open chest procedure and he chose not to have that done. That was in the early part of 2014 when that decision was made. As part of that process we did do a cardiac catheterization at [facility] on May 17, 2014 which showed nonobstructive coronary artery disease including a 50% proximal LAD stenosis (FFR proven nonobstructive) and luminal irregularities in the right coronary artery. More recently he developed congestive heart failure and left ventricular dysfunction, his ejection fraction was felt to be normal on March 05, 2014 with an ejection fraction of 55 to 60%, unchanged from 2009. However a subsequent echocardiogram done September 22, 2015 showed moderate left ventricular dysfunction with ejection fraction of 35 to 40% as well as severe concentric left ventricular hypertrophy. Another echocardiogram January 16, 2016 showed his ejection fraction to have fallen to 30-35%. This was felt to possibly be due to amyloid, however urine and protein electrophoresis was unremarkable. He was started on diuretics, he cannot tolerate beta blockers due to exacerbation of asthma therefore his lisinopril was titrated. He was already on digoxin. He was subsequently switched to Entresto and that was titrated to optimal dosing with discontinuation of lisinopril. An echocardiogram April 21, 2016 was interpreted as an ejection fraction of 35 to 40% and although there was some fluctuation over the next year and a half by December 2017 his ejection fraction was about 40% Clinically he was doing very well over the summer 2018, working very hard doing landscaping and not having difficulty with heart failure symptoms. He did not s [facility] to be bothered very much by the atrial fibrillation either. I did repeat his echocardiogram to see whether the Entresto was helping with his left ventricular function, that was done January 04, 2019 and it showed severe global hypokinesis with severe concentric left ventricular hypertrophy and ejection fraction of 20 to 25%. This was felt to be worse than December 2017. Left ventricle however was felt to be normal in size. I did look for amyloid but based on serum and urine protein electrophoreses that did not seem to be present. An echocardiogram done May 15, 2020 showed continued severe left ventricular dysfunction with ejection fraction of 25 to 30% with severe concentric left ventricular hypertrophy. Similar to December 2019. With the inability to optimize his medical therapy any further due to side effects we did implant a biventricular ICD on February 26, 2020 in hopes of regularizing his rhythm, increasing the heart rate and improving interventricular conduction. Since he is in permanent atrial fibrillation we do not implant an atrial lead and the device is programmed to VVIR mode. He did not feel appreciably better after implant and he has had a lot of difficulty with fluid management. His thyroid was also not under good control. He was having a lot of bruising on Xarelto so that was switched to Eliquis. He was referred to [facility] for advanced heart failure therapies and recommendations. He is considering an LVAD and a possible cardiac transplant. He underwent genetic testing for amyloidosis and this was not helpful. He was supposed to undergo a pyrophosphate nuclear study and have a RHC with endomyocardial biopsy but the patient did not feel comfortable with his provider at [facility] so he did not go back for these additional tests. We did refer him to [facility] but due to insurance issues he cannot be seen there. He wanted another opinion regarding his ongoing heart failure and poor biventricular systolic function, He does have an appointment at [facility] but that is several weeks off and he is feeling poorly. He has been having a lot of difficulty with fluid retention, fatigue and weakness over the last 2 to 3 weeks and this has become progressive. He is unable to sleep due to discomfort and he has significant edema. Outpatient management has failed to control his fluid volume therefore he came into the emergency room and was admitted for treatment. He was given intravenous Lasix and was started on intravenous milrinone. This morning he does not feel appreciably better. He slept poorly through the night, in part because his monitor beeping kept him awake, in part because he does still does not feel well. He does not have lightheadedness or dizziness, he does not have chest discomfort and he is not feel that his edema has changed very much. Allergies Allergy/AdvReac Type Severity Reaction Status Date / Time cat dander Allergy Unknown ITCHY EYES Verified 04/21/21 13:30 No Known Drug Allergies Allergy Unknown NONE Verified 04/21/21 13:30 ragweed pollen Allergy Unknown asthma Verified 04/21/21 13:30 symptoms,dizziness,lethargy Home Medications Medication Instructions Recorded Confirmed Type colchicine 0.6 mg tablet 0.6 mg PO BID PRN #180 tab 11/23/18 04/21/21 Rx apixaban 5 mg tablet (Eliquis) 5 mg PO BID #60 tab 09/05/20 04/21/21 Rx omega 5-amz-kmo-fish oil 1,000 mg 1 cap PO BID 09/12/20 04/21/21 History (120 mg-180 mg) capsule (Fish Oil) potassium chloride 10 mEq 10 meq PO BID tab 09/12/20 04/21/21 History tablet,extended release cetirizine 10 mg tablet (Zyrtec) 10 mg PO DAILY 12/29/20 04/21/21 History furosemide 20 mg tablet 40 - 80 mg PO DAILY PRN tab 12/29/20 04/21/21 History metolazone 5 mg tablet 5 mg PO DAILY PRN #90 tab 01/18/21 04/21/21 Rx lorazepam 0.5 mg tablet 0.5 - 1 mg PO BID PRN #60 tab 02/27/21 04/21/21 Rx Wheeled Walker #1 ea 03/23/21 Rx albuterol sulfate 90 mcg/actuation See Rx Instructions INH .COMPLEX 03/31/21 04/21/21 Rx aerosol inhaler (ProAir HFA) #25.5 gm Saccharomyces boulardii 250 mg 250 mg PO BID 04/21/21 04/21/21 History capsule (Florastor) allopurinol 100 mg tablet 100 - 200 mg PO Q2D 04/21/21 04/21/21 History atorvastatin 10 mg tablet 10 mg PO HS 04/21/21 04/21/21 History calcium carbonate 200 mg calcium 200 mg PO BID 04/21/21 04/21/21 History (500 mg) chewable tablet (Tums) cholecalciferol (vitamin D3) 25 1,000 units PO QAM 04/21/21 04/21/21 History mcg (1,000 unit) tablet fluticasone 250 mcg-salmeterol 50 2 inh INHALATION BID 04/21/21 04/21/21 History mcg/dose blistr powdr for inhalation (Wixela Inhub) glucosamine HCl 500 mg tablet 2,000 mg PO BID 04/21/21 04/21/21 History levothyroxine 125 mcg tablet 125 mcg PO DAILYBB 04/21/21 04/21/21 History metoprolol succinate 100 mg 50 mg PO HS 04/21/21 04/21/21 History tablet,extended release 24 hr multivitamin 1 tab PO Q2D 04/21/21 04/21/21 History Patient History Medical History Allergic rhinitis Asthma Atrial fibrillation and flutter Cardiomyopathy Chronic systolic (congestive) heart failure Gout, joint History of cerebral embolism Hyperlipidemia Hypertension Hypothyroidism Leg wound, right On anticoagulant therapy Osteoarthritis Palpitations Supraventricular tachycardia Surgical History History of bilateral carpal tunnel release History of knee surgery History of lumbar surgery Hx of tonsillectomy Family History Mother Breast cancer Brother Coronary heart disease Denies family history of Colon cancer Ovarian cancer Prostate cancer Social History Smoking Status: Former smoker Second Hand Exposure: No; Do You Dip or Chew Tobacco: No; Hx Alcohol Use: No Hx Substance Use: No Preferred Language: Thai Communication Ability: Effective Visual Impairment: No Limitations Hearing Ability: Hard of Hearing Edge Gluer Required: No Beliefs That Will Affect Care: None marital status: Current Living Situation: Spouse current occupational status: retired Other Information That Helps Us Care for You: No Feels Safe at Home: Yes Safety Concerns: Feels Safe At This Time Childhood Exposure to Second-Hand Smoke: No Dental Care, Regularly: No Physical Activity Frequency: Daily Seatbelt Use: always Sunscreen Use: Yes Assistive Devices: Walker Physical Exam Physical Exam: Constitutional: Alert, cooperative and in mild distress. He appears quite weak and tired. HEENT: Unremarkable Neck: No jugular venous distention, carotid pulses are normal and equal bilaterally without bruits. Pulmonary: Clear to auscultation bilaterally. Cardiac: Regular rhythm with no murmur, gallop or rub. Abdomen: Soft, nontender with normal bowel sounds. Extremities: +2 bilateral pretibial edema. Distal pulses intact. Neurologic: No focal findings. Gait was not tested. Skin: The device site in the left prepectoral region is well-healed without erythema, swelling or tenderness. No rash, ecchymoses or petechiae. Results & Data ([facility]) Vital Signs (Past 12 Hours) Vital Signs Temp Pulse Resp BP Pulse Ox 04/22/21 04:00 35.9 C L 79 22 91/61 L 96 04/22/21 03:30 36.0 C L 81 20 97/57 L 96 04/22/21 03:00 36.2 C L 81 24 95/66 L 95 04/22/21 02:30 36.3 C L 81 21 93/60 L 95 04/22/21 02:00 36.4 C L 75 20 91/60 L 90 04/22/21 01:30 36.5 C 75 20 90/57 L 94 04/22/21 01:06 36.5 C 04/22/21 01:00 36.6 C 72 17 93/59 L 90 04/22/21 00:30 36.4 C L 72 20 82/54 L 97 04/22/21 00:00 36.2 C L 71 19 86/60 L 97 04/21/21 23:30 36.0 C L 80 17 91/65 L 96 04/21/21 23:00 35.8 C L 74 22 98/61 L 96 04/21/21 22:30 35.5 C L 71 24 93/67 L 96 04/21/21 21:30 35.0 C L 81 17 81/59 L 96 04/21/21 21:00 35.0 C L 82 23 94/67 L 98 Laboratory Results Cardiac Enzymes 04/21/21 04/21/21 Range/Units 12:55 18:31 AST 42 H (15-37) U/L Troponin I 0.149 H* 0.144 H* (0-0.045) ng/ml Coagulation 04/21/21 Range/Units 12:55 PT 15.0 H (9.0-12.0) Seconds APTT 31.5 H (21.0-31.0) Seconds CBC 04/21/21 04/22/21 Range/Units 12:55 04:06 WBC 7.07 6.06 (4.8-10.8) K/uL RBC 3.35 L 3.03 L (4.7-6.1) M/uL Hgb 10.9 L 9.7 L (14.0-18.0) g/dL Hct 33.9 L 30.1 L (42-52) % Plt Count 137 125 L (130-400) K/uL Neut # (Auto) 6.33 5.10 (1.4-6.5) K/uL Lymph # (Auto) 0.52 L 0.55 L (1.2-3.4) K/uL Hartley # (Auto) 0.18 0.36 (0.11-0.59) K/uL Eos # (Auto) 0.02 0.03 (0-0.5) K/uL Baso # (Auto) 0.00 0.00 (0-0.2) K/uL Comprehensive Metabolic Panel 04/21/21 04/22/21 Range/Units 12:55 04:06 Sodium 132 L 132 L (136-145) mmol/L Potassium 4.5 4.3 (3.5-5.1) mmol/L Chloride 96 L 98 (98-107) mmol/L Carbon Dioxide 28 28 (21-32) mmol/L BUN 124 H 122 H (7-18) mg/dl Creatinine 2.41 H 2.14 H (0.6-1.4) mg/dl Glucose 153 H 108 H (70-99) mg/dl Calcium 9.4 9.3 (8.5-10.1) mg/dl AST 42 H (15-37) U/L ALT 30 (12-78) Alkaline Phosphatase 203 H D (45-117) U/L Total Protein 6.9 (6.4-8.2) gm/dl Albumin 3.0 L (3.4-5.0) gm/dl Intake and Output 04/21/21 04/22/21 04/22/21 22:59 06:59 14:59 Intake Total 200 / 650 450 / 650 Output Total 825 / 825 Balance 200 / -175 -375 / -175 Intake: Oral 200 / 650 450 / 650 Output: Urine Amount (Catheter) 825 / 825 Fam/Indwelling 825 / 825 Other: Weight 82 kg 82.1 kg Weight Measurement Method [facility] Diagnostic Findings Telemetry: Biventricular pacing Chest x-ray: Mild congestive heart failure present on presentation, this morning's chest x-ray is similar. PG Care Time/CCT Total # of Minutes Spent Total Time Spent with Patient: Total time spent is greater than 50% in coordination of care (as documented) at patient's floor/unit and/or counseling patient: Prolonged Care Time 1. Congestive heart failure: He has a long history of congestive heart failure which has been worsening gradually and now he presents with acute congestive heart failure. Agree with diuresis, hopefully we can remove some fluid without worsening his hemodynamic measurements. So far he does not feel much different and I do not think his weights are reliable as he seems to have lost a great deal of muscle mass. He is now on milrinone, I would probably continue this for another day or so but if it does not make much difference consider switching to dobutamine although neither are a good long-term solution. We will need to continue to pursue other options at [facility]. 2. Cardiorenal syndrome: We have suspected that he has significant decline in cardiac output, I do not know that we can change that with medical therapy although acutely perhaps we can improve it. His creatinine is currently in the range where it has been in the past and there are significant fluctuations in it. 3. 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 4. Permanent atrial fibrillation: His rate is controlled by his biventricular device but he remains in atrial fibrillation. We cannot monitor atrial fibrillation because we did not implant an atrial lead as he is considered to have permanent atrial fibrillation. 5. Anticoagulation: He has had a lot of difficulty with bruising on anticoagulation although no overt bleeding. He has been on 5 mg twice a day of Eliquis most recently due to his age and weight, that would be correct although with the bruising we could consider reducing the dose although that would be an off label dosage. For the moment I would like to continue the current dose if possible. Coding Level of Care Code 62295 Inpt Consult Level 4 Diagnoses Acute on chronic systolic CHF (congestive heart failure), NYHA class 4 I50.23 Cardiorenal syndrome I13.0 Heart failure presence: with heart failure Hypertensive chronic kidney disease stage: stage 1-4 or unspecified chronic kidney disease Cardiomyopathy I42.9 Cardiomyopathy type: unspecified Atrial fibrillation, permanent I48.21 Anticoagulant long-term use Z79.01 (1) Cardiorenal syndrome Heart failure presence: with heart failure Hypertensive chronic kidney disease stage: stage 1-4 or unspecified chronic kidney disease Qualified Code(s): I13.0 - Hypertensive heart and chronic kidney disease with heart failure and stage 1 through stage 4 chronic kidney disease, or unspecified chronic kidney disease (2) Cardiomyopathy Cardiomyopathy type: unspecified Qualified Code(s): I42.9 - Cardiomyopathy, unspecified
[2021-04-22] MEDS ORDERED: MULTIVITAMIN TAB PO SCH (09:00)
[2021-04-22] MEDS ORDERED: FUROSEMIDE 40 MG/4 ML VIAL IV SCH (09:00)
[2021-04-22] MEDS ORDERED: BUMETANIDE 2 MG in SYRINGE 0 ML IV SCH (09:00)
[2021-04-22] MEDS ORDERED: BUMETANIDE 2 MG in SYRINGE 0 ML IV ONE (16:00)
--- NOTE | 2021-04-22 17:11 | Critical Care Progress Note ---
Date of Service April 22, 2021 Assessment & Plan (1) Acute CHF: (2) Orthopnea: (3) NATALIYA (acute kidney injury): (4) Pleural effusion: Plan: Chest x-ray 04/21/2021 personally reviewed: Portable film, large right-sided pleural effusion, increased cardiac silhouette, left-sided AICD Blunting of bilateral costophrenic and cardiophrenic angles. --Shortness of breath Secondary to acute on chronic CHF exacerbation BNP 10,500 COVID-19 PCR negative TSH 2.4 which is within normal limit on 03/24/2021 Continue with milrinone Okay to continue metoprolol given the milrinone is not affecting beta receptors Continue with Lasix Strict ins and outs, keep the patient negative balance BiPAP nightly and as needed shortness of breath -- NATALIYA Likely cardiorenal with a renal component Monitor BUN/creatinine Avoid nephrotoxic medications Strict ins and outs --Hyponatremia with hypochloremia Hypervolemic likely from underlying CHF along with diuretic use Serum osmolality is 331, likely from elevated BUN Urine osmolality 399 with urine sodium of 13 goes with prerenal --Bilateral pleural effusion Cardiology is chronic CHF Patient is not in any respiratory distress No indication for thoracentesis currently Continue with diuretics --Elevated troponin Likely type II TN EKG 04/21/2021: Ventricular paced rhythm, multiple artifacts, poor quality Continue to monitor --Elevated alk phos with mild elevation in AST Chronically elevated, likely from passive congestion from underlying CHF Continue to monitor --History of A. fib Rate control On apixaban at home --Prophylaxis VTE: Apixaban GI: None Lines: Peripheral Diet: Cardiorenal Plan: In/out: -175, urine output 825 Decrease the dose of apixaban 2.5 mg every 12 hours Increase the milrinone 0.2. I will give the patient Bumex 2 mg. We will repeat it if the urine output is not optimal Go up on the milrinone to get good urine output. Overall prognosis of the patient is guarded given CKD, end-stage heart disease. Goals of care should be discussed with the patient. I have personally spent 37 minutes of critical care time in the direct management of this patient. This is a life/limb threatening event. This includes time spent evaluating patient, direct bedside care, chart review, placing orders, interpretation of diagnostic studies, discussion with consultants, patient, and family members, as well as other required patient management activities. This time is exclusive of all separately billable procedures, and teaching time and separate from and in addition to any other critical care service time. Please note the above document was generated using voice recognition software. It may contain grammatical, syntax or spelling errors. Admission and Anticipated Discharge Date Admission Date: April 21, 2021 Subjective Patient seen and examined at bedside. No acute distress, no adverse events overnight. Patient is still very lethargic. He denies any chest pain, no shortness of breath, no headache, no nausea, no vomiting He has been on milrinone drip 0.1 at the time of examination His urine output is not optimal. He has been hypothermic on offering a warming blanket he refuses it. Review of Systems Review of Systems: All systems reviewed & are unremarkable except as noted in Subjective Physical Exam Physical Exam: Constitutional: No acute distress HEENT: EOMI, PERRLA Respiratory system: Decreased air entry bilaterally, no wheeze, rhonchi, positive crackles bilateral lower lobes CVS: S1-S2 positive, distant heart sound, accentuated P2, left-sided AICD Abdomen: Soft, nontender, nondistended, positive bowel sounds x4 Extremities: +2 pulses bilaterally radialis/ dorsalis pedis, no cyanosis, +2 pit ting edema bilateral lower extremity Neuro: Awake alert oriented x3 Psych: Normal mood and affect G/U: Positive Fam Skin: no rashes, warm and dry Lymphatic: no cervical or axillary lymphadenopathy Coding Level of Care Code Critical Care 1st 30-74 mins Diagnoses Acute CHF I50.9 Heart failure type: unspecified Orthopnea R06.01 NATALIYA (acute kidney injury) N17.9 Pleural effusion J90 Time Spent (min) 37 (1) Acute CHF Heart failure type: unspecified Qualified Code(s): I50.9 - Heart failure, unspecified
[2021-04-22] MEDS: MILRINONE LACTATE/D5W 20,000 MCG/100 ML BAG IV SCH (17:55)
--- NOTE | 2021-04-22 19:19 | Hospitalist Progress Note ---
Date of Service April 22, 2021 Assessment & Plan (1) Acute CHF: Plan: Mr. 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 Over the past 3-4 weeks, he is very short of breath with minimal activity, his legs and abdomen are edematous and swollen, has had orthopnea, and has been a unable to sleep for the past 2 or 3 nights. Additionally, his leg edema has been so bad that he now has some weeping areas on his legs. Patient has not been weighing himself daily because he has been feeling poorly, but he knows that he is much heavier due to fluid retention now than he normally is. patient has been adjusting his Lasix home varying between 40-60 mg daily. Either of these doses does result in increased urine output, but his breathing is not improving. He developed congestive heart failure and left ventricular dysfunction in 2015. His ejection fraction was felt to be normal on March 05, 2014 with an ejection fraction of 55 to 60%, unchanged from 2009. However a subsequent echocardiogram done September 22, 2015 showed moderate left ventricular dysfunction with ejection fraction of 35% to 40% as well as severe concentric left ventricular hypertrophy. Another echocardiogram January 16, 2016 showed his ejection fraction to have fallen to 30%-35%. This was felt to be due possibly to amyloid, however urine and protein electrophoresis were unremarkable. He was started on diuretics, he did not initially tolerate beta blockers due to exacerbation of asthma therefore his lisinopril was titrated. He was already on digoxin.He eventually started on a beta toni and did not have any further bronchospasm. He was subsequently switched to Entresto and that was titrated to optimal dosing with discontinuation of lisinopril. An echocardiogram April 21, 2016 was interpreted as an ejection fraction of 35% to 40% and although there was some fluctuation over the next year and a half by December 2017 his ejection fraction was about 40%. 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 He did not seem to be bothered very much by the atrial fibrillation either. Repeat echocardiogram to see whether the Entresto was helping with his left ventricular function, that was done January 04, 2019 and it showed severe global hypokinesis with severe concentric left ventricular hypertrophy and ejection fraction of 20% to 25%. This was felt to be worse than December 2017. Left ventricle however was felt to be normal in size. Amyloid workup done and based on serum and urine protein electrophoreses it does not seem to be present. An echocardiogram prior to his visit on January 08, 2020 and this shows severe left ventricular dysfunction with ejection fraction of 25% to 30%. With ongoing and gradually worsening heart failure symptoms, progressive left ventricular dysfunction on optimal medical therapy, a left b undle branch pattern with a wide QRS complex -- a biventricular ICD was recommended and placed in February 2020. Entresto was subsequently discontinued due to hypotension. Following the placement of a Bi-V AICD his LV systolic function did not improve. Patient was referred to [facility] heart failure clinic for advanced heart failure therapies and recommendations. Patient was considering an LVAD and a possible cardiac transplant. He underwent genetic testing for tame amyloidosis and this was negative. He was supposed to undergo a PYP nuclear study and have a RHC with endomyocardial biopsy -- but the patient did not feel comfortable with his provider at [facility] so he did not go back for these additional tests. Patient decided that he wanted another opinion regarding his ongoing heart failure and poor biventricular systolic function, but first he wants to get out of heart failure at our facility and then he will pursue a 2nd opinion at [facility]. Acute on chronic biventricular systolic CHF-he is end-stage and is not doing well. Able to diurese some today and edema slightly improved, weights are not accurate -Continue milrinone drip and titrate up as needed for urine output -Switched IV Lasix to IV Bumex 2 mg twice daily -Continue Metoprolol Succinate ER 50 mg daily at bedtime. -Monitor daily I&O's, body weights, 2 gram low sodium diet, and 1500 ml fluid restriction -Appreciate cardiology consultation-we will discuss about possible need for transfer to to tertiary care facility if not improving (2) Biventricular heart failure with reduced left ventricular function: Plan: As above (3) ICD (implantable cardioverter-defibrillator), biventricular, in situ: Plan: -- BiV AICD implanted in February 2020, subsequent Echo showed no improvement in systolic function. (4) Cardiomyopathy: Plan: Concern for wild type cardiac amyloid. Patient was referred to [facility] heart failure clinic for advanced heart failure therapies and recommendations. Patient was considering an LVAD and a possible cardiac transplant. He underwent genetic testing for amyloidosis and this was negative. Previous SPEP/UPEP negative. He was supposed to undergo a PYP nuclear study and have a RHC with endomyocardial biopsy -- but the patient did not feel comfortable with his provider at [facility] so he did not go back for these additional tests. Patient decided that he wanted another opinion regarding his ongoing heart failure and poor biventricular systolic function, but first he wants to get out of heart failure at our facility and then he will pursue a 2nd opinion at [facility]. (5) Atrial fibrillation and flutter: Plan: Paced rhythm but has underlying permanent atrial fibrillation Continue Eliquis (6) Cardiorenal syndrome: Plan: Creatinine improved somewhat today down to 2.1 from 2.4 Renal failure likely made worse by low output cardiac failure. Urine sodium low at 18 and urine osmolality elevated in the 300s consistent with prerenal state -- Monitor daily labs. Avoid nephrotoxins Follow urine output (7) Thrombocytopenia: Plan: Platelets decreasing slightly to 125 and INR elevated 1.5 May have some hepatic dysfunction from heart failure -Follow CBC (8) Hypothermia: Plan: Temperature persistently 35 C He is refusing lory hugger Likely due to low cardiac output (9) Hyponatremia: Plan: Sodium 132 and stable from previous, secondary to hypervolemia from heart failure Follow BMP (10) Elevated troponin: Plan: Likely myocardial demand ischemia from heart failure Troponin was 0.149/0.144 No chest pain (11) CKD (chronic kidney disease): Plan: As above (12) Hypothyroidism: Plan: TSH 2.4 in 03/2021 Continue home levothyroxine 125 mcg once daily (13) History of cerebral embolism: Plan: 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 He denies chest pain. Still dyspneic with very minimal exertion. Urine output has picked up throughout the day with increasing dose of milrinone drip. He states "I do not have very many days left, so I just want a get 1 good nights rest." He is hopeful that he will likely be transferred to [facility] as an inpatient as he does not think he will be able to make it home. He feels like his legs and hands are less swollen than yesterday. Telemetry with V paced and PVCs Review of Systems Review of Systems: All systems reviewed & are unremarkable except as noted in HPI & below Physical Exam Constitutional: + ill appearing, + thin and + cachectic Eyes: + anicteric sclerae Neck: trachea midline, no thyromegaly Respiratory: + cough and + tachypneic (With short sentences) Auscultation: + diminished lung sounds (Right lung base) and + crackles (Bibasilar) Cardiovascular: Rate/Rhythm: regular rate and regular rhythm Heart Sounds: + murmur (2/6 at left sternal border) Extremities: + edema (2+ in legs, 1+ in arms and hands, improved from yesterday) Chest (Breasts): Chest: normal inspection of chest Gastrointestinal (Abdomen): normal bowel sounds, soft, nontender, no hepatosplenomegaly Musculoskeletal: Extremities: + cyanosis (With some mottling); no clubbing Skin: + wound (Multiple superficial wounds of legs bilaterally) and + erythema (Venous stasis changes of legs bilaterally) Neurologic: moves all extremities and awake; no focal motor deficits Psychiatric: A+Ox3, euthymic affect Genitourinary: Fam catheter in place draining dark yellow clear urine Results & Data Results & Data ([facility]) Vital Signs (Past 12 Hours) Vital Signs Temp Pulse Resp BP Pulse Ox 04/22/21 19:00 82 18 89/55 L 04/22/21 18:30 90 20 101/75 04/22/21 18:00 35.5 C L 80 23 102/69 04/22/21 17:30 35.3 C L 87 18 107/68 04/22/21 17:00 35.4 C L 84 19 04/22/21 16:30 35.2 C L 85 25 H 118/75 04/22/21 16:00 35.3 C L 81 22 106/82 04/22/21 15:31 35.2 C L 88 18 94/64 L 04/22/21 15:30 35.2 C L 81 19 04/22/21 15:00 35.3 C L 82 16 99/67 L 04/22/21 14:30 35.3 C L 86 34 H 98/76 L 04/22/21 14:01 35.3 C L 104 H 27 H 97/63 L 04/22/21 14:00 35.3 C L 24 04/22/21 13:31 35.3 C L 23 107/58 L 04/22/21 13:30 35.3 C L 17 04/22/21 13:00 35.2 C L 89 20 96/68 L 95 04/22/21 12:31 35.1 C L 86 20 107/74 04/22/21 12:30 35.1 C L 79 20 95 04/22/21 12:00 35.1 C L 89 17 93/68 L 95 04/22/21 11:30 35.1 C L 86 17 115/66 95 04/22/21 11:00 35.2 C L 82 17 94/58 L 94 04/22/21 10:30 35.2 C L 76 16 91/63 L 95 04/22/21 10:00 35.2 C L 82 24 101/64 96 04/22/21 09:30 35.3 C L 77 20 91/59 L 83 L 04/22/21 09:00 35.2 C L 77 18 95/62 L 87 L 04/22/21 08:30 35.3 C L 73 18 97/62 L 93 04/22/21 08:00 35.3 C L 88 21 99/62 L 86 L 04/22/21 07:30 102/70 Laboratory Results 04/22/21 04/22/21 04/22/21 Range/Units 07:31 04:06 04:06 WBC (4.8-10.8) K/uL RBC (4.7-6.1) M/uL Hgb (14.0-18.0) g/dL Hct (42-52) % MCV (80-100) fL MCH (25-34) pg MCHC (32-36) g/dL RDW Std Deviation (36.4-46.3) fL RDW Coeff of Janes (11.5-14.5) % Plt Count (130-400) K/uL MPV (7.4-10.4) fL Immature Gran % (Auto) % Neut % (Auto) % Lymph % (Auto) % [place] % (Auto) % Eos % (Auto) % Baso % (Auto) % Neut # (Auto) (1.4-6.5) K/uL Lymph # (Auto) (1.2-3.4) K/uL [place] # (Auto) (0.11-0.59) K/uL Eos # (Auto) (0-0.5) K/uL Baso # (Auto) (0-0.2) K/uL Immature Gran # (Auto) (0.00-0.02) K/uL Platelet Estimate (Normal) RBC Morphology Sodium 132 L (136-145) mmol/L Potassium 4.3 (3.5-5.1) mmol/L Chloride 98 (98-107) mmol/L Carbon Dioxide 28 (21-32) mmol/L Anion Gap 6.0 (3-11) BUN 122 H (7-18) mg/dl Creatinine 2.14 H (0.6-1.4) mg/dl Est Cr Clr Drug Dosing 32.7 ml/min Est GFR ( Amer) 34.3 ml/min Est GFR (Non-Af Amer) 29.6 ml/min BUN/Creatinine Ratio 57.0 H (10-20) Glucose 108 H (70-99) mg/dl POC Glucose 107 H (70-99) mg/dl Calcium 9.3 (8.5-10.1) mg/dl Phosphorus 3.4 (2.5-4.9) mg/dl Magnesium 3.2 H (1.8-2.4) mg/dl Total Bilirubin (0.2-1) mg/dl Nasal Screen MRSA (PCR) (Negative) Hepatitis C Ab Screen Neg (Neg) 04/22/21 04/21/21 04/21/21 Range/Units 04:06 20:26 12:55 WBC 6.06 (4.8-10.8) K/uL RBC 3.03 L (4.7-6.1) M/uL Hgb 9.7 L (14.0-18.0) g/dL Hct 30.1 L (42-52) % MCV 99.3 (80-100) fL MCH 32.0 (25-34) pg MCHC 32.2 (32-36) g/dL RDW Std Deviation 58.5 H (36.4-46.3) fL RDW Coeff of Janes 16.1 H (11.5-14.5) % Plt Count 125 L (130-400) K/uL MPV 13.0 H (7.4-10.4) fL Immature Gran % (Auto) 0.3 % Neut % (Auto) 84.2 % Lymph % (Auto) 9.1 % [place] % (Auto) 5.9 % Eos % (Auto) 0.5 % Baso % (Auto) 0.0 % Neut # (Auto) 5.10 (1.4-6.5) K/uL Lymph # (Auto) 0.55 L (1.2-3.4) K/uL [place] # (Auto) 0.36 (0.11-0.59) K/uL Eos # (Auto) 0.03 (0-0.5) K/uL Baso # (Auto) 0.00 (0-0.2) K/uL Immature Gran # (Auto) 0.02 (0.00-0.02) K/uL Platelet Estimate Decreased L (Normal) RBC Morphology Unremarkable Sodium (136-145) mmol/L Potassium (3.5-5.1) mmol/L Chloride (98-107) mmol/L Carbon Dioxide (21-32) mmol/L Anion Gap (3-11) BUN (7-18) mg/dl Creatinine (0.6-1.4) mg/dl Est Cr Clr Drug Dosing ml/min Est GFR ( Amer) ml/min Est GFR (Non-Af Amer) ml/min BUN/Creatinine Ratio (10-20) Glucose (70-99) mg/dl POC Glucose (70-99) mg/dl Calcium (8.5-10.1) mg/dl Phosphorus (2.5-4.9) mg/dl Magnesium (1.8-2.4) mg/dl Total Bilirubin 2.1 H (0.2-1) mg/dl Nasal Screen MRSA (PCR) Negative (Negative) Hepatitis C Ab Screen (Neg) PG Care Time/CCT Total # of Minutes Spent Total Time Spent with Patient: Total time spent is greater than 50% in coordination of care (as documented) at patient's floor/unit and/or counseling patient: Coding Level of Care Code 43097 Subseq Hosp Care Lvl 3 Diagnoses Acute CHF I50.9 Heart failure type: unspecified Biventricular heart failure with reduced left ventricular function I50.814 ICD (implantable cardioverter-defibrillator), biventricular, in situ Z95.810 Cardiomyopathy I42.9 Cardiomyopathy type: unspecified Atrial fibrillation and flutter I48.91; I48.92 Cardiorenal syndrome I13.0 Heart failure presence: with heart failure Hypertensive chronic kidney disease stage: stage 1-4 or unspecified chronic kidney disease Thrombocytopenia D69.6 Hypothermia T68.XXXA Hyponatremia E87.1 Elevated troponin R77.8 CKD (chronic kidney disease) N18.9 Hypothyroidism E03.9 History of cerebral embolism Z86.79 Pleural effusion J90 Anemia D64.9 Anemia type: unspecified type (1) Acute CHF Heart failure type: unspecified Qualified Code(s): I50.9 - Heart failure, unspecified (2) Cardiorenal syndrome Heart failure presence: with heart failure Hypertensive chronic kidney disease stage: stage 1-4 or unspecified chronic kidney disease Qualified Code(s): I13.0 - Hypertensive heart and chronic kidney disease with heart failure and stage 1 through stage 4 chronic kidney disease, or unspecified chronic kidney disease (3) Cardiomyopathy Cardiomyopathy type: unspecified Qualified Code(s): I42.9 - Cardiomyopathy, unspecified (4) Anemia Anemia type: unspecified type Qualified Code(s): D64.9 - Anemia, unspecified
[2021-04-22] MEDS: ATORVASTATIN 10 MG TAB PO SCH (21:35)
[2021-04-22] MEDS: APIXABAN 2.5 MG TAB PO SCH (21:35)
[2021-04-22] MEDS: METOPROLOL SUCC 50MG EXT REL TAB PO SCH (21:36)
[2021-04-22] MEDS ORDERED: LORazepam 0.5 MG TAB PO STA (23:26)
[2021-04-23 04:50] LABS: Hematocrit (blood only) 28.1 % (42-52); Hemoglobin 9.2 g/dL (14.0-18.0); Mean Corpuscular Hemoglobin 32.2 pg (25-34); Mean Corpuscular Hgb Conc 32.7 g/dL (32-36); Mean Corpuscular Volume 98.3 fL (80-100); Mean Platelet Volume 12.2 fL (7.4-10.4); Platelet Count 115 K/uL (130-400); RDW Coefficient of Variation 16.1 % (11.5-14.5); RDW Standard Deviation 57.6 fL (36.4-46.3); Red Blood Count 2.86 M/uL (4.7-6.1); White Blood Count 7.08 K/uL (4.8-10.8)
[2021-04-23 04:56] LABS: INR 1.6 (0.9-1.1); Prothrombin Time 15.9 Seconds (9.0-12.0)
[2021-04-23 05:05] LABS: Albumin Level 2.6 gm/dl (3.4-5.0); Calcium 9.1 mg/dl (8.5-10.1); Creatinine Clr Calc Pharmacy 31.7 ml/min; Est GFR (Non-African American) 28.5 ml/min; Magnesium 2.9 mg/dl (1.8-2.4); Potassium 4.1 mmol/L (3.5-5.1)
[2021-04-23 05:08] LABS: Bilirubin,Total 1.8 mg/dl (0.2-1); Ferritin 70.7 ng/ml (8-388); Phosphorus 3.3 mg/dl (2.5-4.9); Total Protein 6.3 gm/dl (6.4-8.2)
[2021-04-23 05:14] LABS: Eosinophils # (auto) 0.02 K/uL (0-0.5); Eosinophils % (auto) 0.3 %; Immature Granulocytes # (auto) 0.02 K/uL (0.00-0.02); Immature Granulocytes % (auto) 0.3 %; Lymphocytes % (auto) 8.5 %; Monocytes # (auto) 0.22 K/uL (0.11-0.59); Monocytes % (auto) 3.1 %; Neutrophils # (auto) 6.22 K/uL (1.4-6.5); Neutrophils % (auto) 87.8 %; Polychromasia 1+; Target Cells 1+
[2021-04-23 05:39] LABS: Folate (Folic Acid) > 20.00 ng/ml (>5.38); Vitamin B12 > 2000 pg/ml (193-986)
[2021-04-23] MEDS: MILRINONE LACTATE/D5W 20,000 MCG/100 ML BAG IV SCH (06:36)
[2021-04-23] MEDS: LEVOTHYROXINE SODIUM 125 MCG TABLET PO SCH (06:36)
[2021-04-23] MEDS: GLUCOSAMINE SULFATE 500 MG CAP PO SCH (08:54)
[2021-04-23] MEDS: SACCHAROMYCES BOULARDII 250 MG CAP PO SCH (08:56)
[2021-04-23] MEDS: OMEGA-3 (PURIFIED FISH OIL) 1 GM CAP PO SCH (08:56)
[2021-04-23] MEDS: allopurinoL 100 MG TAB PO SCH (08:57)
[2021-04-23] MEDS: CHOLECALCIFEROL 1,000 UNITS 25 MCG TAB PO SCH (08:58)
[2021-04-23] MEDS: CETIRIZINE HCL 10 MG TABLET PO SCH (08:58)
[2021-04-23] MEDS: APIXABAN 2.5 MG TAB PO SCH (08:58)
[2021-04-23] MEDS ORDERED: allopurinoL 100 MG TAB PO SCH (09:00)
[2021-04-23] MEDS ORDERED: BUMETANIDE 2 MG in SYRINGE 0 ML IV SCH (09:00)
--- NOTE | 2021-04-23 09:00 | Cardiology Progress Note ---
Date of Service April 23, 2021 Assessment & Plan (1) Acute on chronic systolic CHF (congestive heart failure), NYHA class 4: (2) Cardiorenal syndrome: (3) Cardiomyopathy: (4) Atrial fibrillation, permanent: (5) Anticoagulant long-term use: Plan: 1. Congestive heart failure: He has been diuresing fairly well, he is about a liter a day negative for 2 days and his edema is improved. He looks stronger to me and it seems as though he slept better during the night although he still does not feel very good. He may be responding to milrinone or combination of that and increased diuretics. 2. Cardiorenal syndrome: We have suspected that he has significant decline in cardiac output, perhaps we have increased that somewhat with milrinone or with diuresis, his creatinine is relatively stable although perhaps slightly improved today. 3. 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 4. Permanent atrial fibrillation: His rate is controlled by his biventricular device but he remains in atrial fibrillation. We cannot monitor atrial fibrillation because we did not implant an atrial lead as he is considered to have permanent atrial fibrillation. 5. Anticoagulation: He has had a lot of difficulty with bruising on anticoagulation although no overt bleeding. He has been on 5 mg twice a day of Eliquis most recently due to his age and weight, that would be correct although with the bruising we could consider reducing the dose although that would be an off label dosage. For the moment I would like to continue the current dose if possible. I discussed transfer to [facility] in [place] with Dr. Cirilo Connell this morning and he is agreeable to take the patient in transfer. With the bed situation that may not occur today, but hopefully today or tomorrow. Admission and Anticipated Discharge Date Admission Date: April 21, 2021 Subjective Although he tells me he is not feeling much better since presentation he looks stronger, he is eating breakfast and he has no specific cardiac complaints including no shortness of breath or chest discomfort. Physical Exam Physical Exam: Constitutional: Alert, cooperative and in mild distress. He appears quite weak and tired. HEENT: Unremarkable Neck: No jugular venous distention, carotid pulses are normal and equal bilaterally without bruits. Pulmonary: Clear to auscultation bilaterally. Cardiac: Regular rhythm with no murmur, gallop or rub. Abdomen: Soft, nontender with normal bowel sounds. Extremities: +1 bilateral pretibial edema. Distal pulses intact. Neurologic: No focal findings. Gait was not tested. Skin: The device site in the left prepectoral region is well-healed without erythema, swelling or tenderness. No rash, ecchymoses or petechiae. Results & Data ([facility]) Vital Signs (Past 12 Hours) Vital Signs Temp Pulse Resp BP Pulse Ox 04/23/21 06:00 35.4 C L 79 17 82/56 L 92 04/23/21 05:30 35.3 C L 83 20 86/57 L 92 04/23/21 05:00 35.4 C L 86 21 97/59 L 92 04/23/21 04:30 35.4 C L 92 H 18 96/54 L 92 04/23/21 04:00 35.5 C L 86 20 98/63 L 92 04/23/21 03:30 35.5 C L 90 20 99/65 L 93 04/23/21 03:00 35.5 C L 89 18 93/56 L 92 04/23/21 02:30 35.5 C L 93 H 18 94/68 L 92 04/23/21 02:00 35.5 C L 90 19 92/60 L 92 04/23/21 01:30 35.5 C L 85 19 91/64 L 91 04/23/21 01:00 35.5 C L 80 19 89/63 L 92 04/23/21 00:30 35.5 C L 80 21 88/62 L 94 04/23/21 00:00 35.5 C L 94 H 17 95/55 L 93 04/22/21 23:31 35.5 C L 80 21 91/62 L 93 04/22/21 23:00 35.5 C L 87 17 88/64 L 93 04/22/21 22:30 35.6 C L 98 H 19 95/67 L 94 04/22/21 22:00 99 H 20 120/64 93 04/22/21 21:30 91 H 18 103/71 92 04/22/21 21:00 90 18 92/60 L 93 Laboratory Results Cardiac Enzymes 04/23/21 Range/Units 04:24 AST 42 H (15-37) U/L Coagulation 04/23/21 Range/Units 04:24 PT 15.9 H (9.0-12.0) Seconds CBC 04/23/21 Range/Units 04:24 WBC 7.08 (4.8-10.8) K/uL RBC 2.86 L (4.7-6.1) M/uL Hgb 9.2 L (14.0-18.0) g/dL Hct 28.1 L (42-52) % Plt Count 115 L (130-400) K/uL Neut # (Auto) 6.22 (1.4-6.5) K/uL Lymph # (Auto) 0.60 L (1.2-3.4) K/uL [place] # (Auto) 0.22 (0.11-0.59) K/uL Eos # (Auto) 0.02 (0-0.5) K/uL Baso # (Auto) 0.00 (0-0.2) K/uL Comprehensive Metabolic Panel 04/23/21 Range/Units 04:24 Sodium 132 L (136-145) mmol/L Potassium 4.1 (3.5-5.1) mmol/L Chloride 97 L (98-107) mmol/L Carbon Dioxide 28 (21-32) mmol/L BUN 121 H (7-18) mg/dl Creatinine 2.21 H (0.6-1.4) mg/dl Glucose 118 H (70-99) mg/dl Calcium 9.1 (8.5-10.1) mg/dl Direct Bilirubin 1.0 H (0-0.2) mg/dl AST 42 H (15-37) U/L ALT 27 (12-78) Alkaline Phosphatase 177 H (45-117) U/L Total Protein 6.3 L (6.4-8.2) gm/dl Albumin 2.6 L (3.4-5.0) gm/dl Intake and Output 04/22/21 04/23/21 04/23/21 22:59 06:59 14:59 Intake Total 359.793 / 1051.618 92 / 1051.618 Output Total 575 / 1685 460 / 1685 Balance -215.207 / -633.382 -368 / -633.382 Intake: IV 44.793 / 176.618 92 / 176.618 Milrinone Lactate/D5w 20,000 44.793 / 176.618 92 / 176.618 mcg In 100 ml @ 0.2 MCG/KG/MIN 5.346 mls/hr IV .[id number] [facility] Rx #:[id number] Oral 315 / 875 Output: Urine Amount (Catheter) 575 / 1685 460 / 1685 Fam/Indwelling 575 / 1685 460 / 1685 Diagnostic Findings Telemetry: Atrial fibrillation, ventricular pacing with premature ventricular beats PG Care Time/CCT Total # of Minutes Spent Total Time Spent with Patient: Total time spent is greater than 50% in coordination of care (as documented) at patient's floor/unit and/or counseling patient: Coding Level of Care Code 60999 Subseq Hosp Care Lvl 3 Diagnoses Acute on chronic systolic CHF (congestive heart failure), NYHA class 4 I50.23 Cardiomyopathy I42.9 Cardiomyopathy type: unspecified Atrial fibrillation, permanent I48.21 Anticoagulant long-term use Z79.01 Cardiorenal syndrome I13.0 Heart failure presence: with heart failure Hypertensive chronic kidney disease stage: stage 1-4 or unspecified chronic kidney disease (1) Cardiomyopathy Cardiomyopathy type: unspecified Qualified Code(s): I42.9 - Cardiomyopathy, unspecified (2) Cardiorenal syndrome Heart failure presence: with heart failure Hypertensive chronic kidney disease stage: stage 1-4 or unspecified chronic kidney disease Qualified Code(s): I13.0 - Hypertensive heart and chronic kidney disease with heart failure and stage 1 through stage 4 chronic kidney disease, or unspecified chronic kidney disease
[2021-04-23] MEDS: CALCIUM CARBONATE 500 MG CHEWABLE TAB PO SCH (10:40)
--- NOTE | 2021-04-23 11:19 | Critical Care Progress Note ---
Date of Service April 23, 2021 Assessment & Plan (1) Acute CHF: (2) Orthopnea: (3) NATALIYA (acute kidney injury): (4) Pleural effusion: Plan: Chest x-ray 04/21/2021 personally reviewed: Portable film, large right-sided pleural effusion, increased cardiac silhouette, left-sided AICD Blunting of bilateral costophrenic and cardiophrenic angles. --Shortness of breath Secondary to acute on chronic CHF exacerbation BNP 10,500 COVID-19 PCR negative TSH 2.4 which is within normal limit on 03/24/2021 Continue with milrinone Okay to continue metoprolol given the milrinone is not affecting beta receptors Continue with Lasix Strict ins and outs, keep the patient negative balance BiPAP nightly and as needed shortness of breath -- NATALIYA Likely cardiorenal with a renal component Monitor BUN/creatinine Avoid nephrotoxic medications Strict ins and outs --Hyponatremia with hypochloremia Hypervolemic likely from underlying CHF along with diuretic use Serum osmolality is 331, likely from elevated BUN Urine osmolality 399 with urine sodium of 13 goes with prerenal --Bilateral pleural effusion Cardiology is chronic CHF Patient is not in any respiratory distress No indication for thoracentesis currently Continue with diuretics --Elevated troponin Likely type II PA EKG 04/21/2021: Ventricular paced rhythm, multiple artifacts, poor quality Continue to monitor --Elevated alk phos with mild elevation in AST Chronically elevated, likely from passive congestion from underlying CHF Continue to monitor --History of A. fib Rate control On apixaban at home --Prophylaxis VTE: Apixaban GI: None Lines: Peripheral Diet: Cardiorenal Plan: In/out: - 903, urine output 1635 We will give another 2 mg of Bumex in the evening if the urine output is not good enough. Decrease allopurinol to renal dose I did speak personally with lamp shade maker to see if they can coordinate with cardiology at [facility] and see if the patient will be a transfer candidate for further work-up. I have personally spent 35 minutes of critical care time in the direct management of this patient. This is a life/limb threatening event. This includes time spent evaluating patient, direct bedside care, chart review, placing orders, interpretation of diagnostic studies, discussion with consultants, patient, and family members, as well as other required patient management activities. This time is exclusive of all separately billable procedures, and teaching time and separate from and in addition to any other critical care service time. Please note the above document was generated using voice recognition software. It may contain grammatical, syntax or spelling errors. Admission and Anticipated Discharge Date Admission Date: April 21, 2021 Subjective Patient seen and examined at bedside. No acute distress, no adverse events overnight. Patient is making urine. He looks more alert compared to when I saw him since the last 2 days. Denies any chest pain, no shortness of breath, no headache, no nausea, no vomiting Review of Systems Review of Systems: All systems reviewed & are unremarkable except as noted in Subjective Physical Exam Physical Exam: Constitutional: No acute distress HEENT: EOMI, PERRLA Respiratory system:Decreased air entry bilaterally, no wheeze, rhonchi, positive crackles bilateral lower lobes CVS: S1-S2 positive,distant heart sound, accentuated P2, left-sided AICD Abdomen: Soft, nontender, nondistended, positive bowel sounds x4 Extremities: +2 pulses bilaterally radialis/ dorsalis pedis, no cyanosis,+2 pitting edema bilateral lower extremity Neuro: Awake alert oriented x3 Psych: Normal mood and affect G/U: Positive Fam Skin: no rashes, warm and dry Lymphatic: no cervical or axillary lymphadenopathy Results & Data Results & Data ([facility]) Vital Signs (Past 12 Hours) Vital Signs Temp Pulse Resp BP Pulse Ox 04/23/21 10:00 35.4 C L 81 18 80/53 L 91 04/23/21 09:30 35.4 C L 84 19 101/61 93 04/23/21 09:00 35.3 C L 88 19 105/70 92 04/23/21 08:30 35.2 C L 85 21 91/67 L 04/23/21 08:00 35.2 C L 80 18 109/69 04/23/21 07:30 35.2 C L 90 21 98/73 L 91 04/23/21 07:00 35.2 C L 87 19 85/54 L 93 04/23/21 06:00 35.4 C L 79 17 82/56 L 92 04/23/21 05:30 35.3 C L 83 20 86/57 L 92 04/23/21 05:00 35.4 C L 86 21 97/59 L 92 04/23/21 04:30 35.4 C L 92 H 18 96/54 L 92 04/23/21 04:00 35.5 C L 86 20 98/63 L 92 04/23/21 03:30 35.5 C L 90 20 99/65 L 93 04/23/21 03:00 35.5 C L 89 18 93/56 L 92 04/23/21 02:30 35.5 C L 93 H 18 94/68 L 92 04/23/21 02:00 35.5 C L 90 19 92/60 L 92 04/23/21 01:30 35.5 C L 85 19 91/64 L 91 04/23/21 01:00 35.5 C L 80 19 89/63 L 92 04/23/21 00:30 35.5 C L 80 21 88/62 L 94 04/23/21 00:00 35.5 C L 94 H 17 95/55 L 93 04/22/21 23:31 35.5 C L 80 21 91/62 L 93 Laboratory Results 04/23/21 04:24 04/23/21 04:24 Coding Level of Care Code Critical Care 1st 30-74 mins Diagnoses Acute CHF I50.9 Heart failure type: unspecified Orthopnea R06.01 NATALIYA (acute kidney injury) N17.9 Pleural effusion J90 Time Spent (min) 35 (1) Acute CHF Heart failure type: unspecified Qualified Code(s): I50.9 - Heart failure, unspecified
[2021-04-23] MEDS: FLUTICASONE/VILANTEROL 200/25MCG 14 PUFFS/INHALER INH SCH (12:58)
--- NOTE | 2021-04-23 16:15 | Discharge Summary ---
Date of Service April 23, 2021 Admission HPI Per Admitting Provider Mr. 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 Patient states that over past 3-4 weeks, he is very short of breath with minimal activity, his legs and abdomen are edematous and swollen, has had orthopnea, and has been a unable to sleep for the past 2 or 3 nights. Additionally, his leg edema has been so bad that he now has some weeping areas on his legs. Patient has not been weighing himself daily because he has been feeling poorly, but he knows that he is much heavier due to fluid retention now than he normally is. patient has been adjusting his Lasix home varying between 40-60 mg daily. Either of these doses does result in increased urine output, but his breathing is not improving. Patient offers no other complaints. He denies any exertional chest pain, heaviness, tightness, pressure, or discomfort. He denies any neck, jaw, back, or arm pain. He denies any palpitations, syncope, or near syncope. Patient denies nausea, vomiting, diaphoresis, or any recent illnesses otherwise. Patient is compliant with his medications and has not had any adverse effects. Patient had not been using metolazone recently because of his worsened renal function. HISTORICAL BACKGROUND: Patient underwent cardiac catheterization at [facility] on May 17, 2014 which showed nonobstructive coronary artery disease including a 50% proximal LAD stenosis (FFR proven nonobstructive) and luminal irregularities in the RCA.He developed congestive heart failure and left ventricular dysfunction in 2016. His ejection fraction was felt to be normal on March 05, 2014 with an ejection fraction of 55 to 60%, unchanged from 2009. However a subsequent echocardiogram done September 22, 2015 showed moderate left ventricular dysfunction with ejection fraction of 35 to 40% as well as severe concentric left ventricular hypertrophy. Another echocardiogram January 16, 2016 showed his ejection fraction to have fallen to 30-35%. This was felt to be due possibly to amyloid, however urine and protein electrophoresis were unremarkable. He was started on diuretics, he did not initially tolerate beta blockers due to exacerbation of asthma therefore his lisinopril was titrated. He was already on digoxin.He eventually started on a beta toni and did not have any further bronchospasm. He was subsequently switched to Entresto and that was titrated to optimal dosing with discontinuation of lisinopril. An echocardiogram April 21, 2016 was interpreted as an ejection fraction of 35 to 40% and although there was some fluctuation over the next year and a half by December 2017 his ejection fraction was about 40%. 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 He did not seem to be bothered very much by the atrial fibrillation either. Repeat echocardiogram to see whether the Entresto was helping with his left ventricular function, that was done January 04, 2019 and it showed severe global hypokinesis with severe concentric left ventricular hypertrophy and ejection fraction of 20% to 25%. This was felt to be worse than December 2017. Left ventricle however was felt to be normal in size. Amyloid workup done and based on serum and urine protein electrophoreses it does not seem to be present. An echocardiogram prior to his visit on January 08, 2020 and this shows severe left ventricular dysfunction with ejection fraction of 25% to 30%. With ongoing and gradually worsening heart failure symptoms, progressive left ventricular dysfunction on optimal medical therapy, a left bundle branch pattern with a wide QRS complex -- a biventricular ICD was recommended and placed in February 2020. Following the placement of a Bi-V AICD his LV systolic function did not improve. Patient was referred to [facility] heart failure clinic for advanced heart failure therapies and recommendations. Patient was considering an LVAD and a possible cardiac transplant. He underwent genetic testing for tame amyloidosis and this was negative. He was supposed to undergo a PYP nuclear study and have a RHC with endomyocardial biopsy -- but the patient did not feel comfortable with his provider at [facility] so he did not go back for these additional tests. Patient decided that he wanted another opinion regarding his ongoing heart failure and poor biventricular systolic function, but first he wants to get out of heart failure at our facility and then he will pursue a 2nd opinion at [facility]. Recent cardiac studies: ECHOCARDIOGRAM 05/08/20: -- Normal LV size, severely reduced EF, 25%-30%. Akinesis of the inferolateral and base to mid anterolateral wall segments. Severe concentric LVH. Moderately dilated RV with severely reduced systolic function. Severe biatrial dilation. Mild MR. Trace pericardial effusion. Normal RVSP. ECHOCARDIOGRAM 12/29/20: Normal LV size, severely reduced systolic function. EF 25-30%. Global hypokinesis. Severe concentric LVH. Findings suspicious for cardiac amyloidosis. Mildly dilated RV with severely reduced systolic function. Severe biatrial dilation. Mild-mod MR. Trace pericardial effusion. Normal RVSP. Principal Diagnosis Acute on chronic systolic CHF Discharge Exam Constitutional + ill appearing, + thin and + cachectic Eyes + anicteric sclerae Neck trachea midline, no thyromegaly Respiratory + cough and + tachypneic (With short sentences) Auscultation: + diminished lung sounds (Right lung base) and + crackles (Bibasilar) Cardiovascular Rate/Rhythm: regular rate and regular rhythm Heart Sounds: + murmur (2/6 at left sternal border) Extremities: + edema (2+ in legs, 1+ in arms and hands, improved from yesterday) Chest (Breasts) Chest: normal inspection of chest Gastrointestinal (Abdomen) normal bowel sounds, soft, nontender, no hepatosplenomegaly Musculoskeletal Extremities: + cyanosis (With some mottling); no clubbing Skin + wound (Multiple superficial wounds of legs bilaterally) and + erythema (Venous stasis changes of legs bilaterally) Neurologic moves all extremities and awake; no focal motor deficits Psychiatric A+Ox3, euthymic affect Genitourinary Fam in place draining clear yellow urine Discharge Data Allergies Allergy/AdvReac Type Severity Reaction Status Date / Time cat dander Allergy Unknown ITCHY EYES Verified 04/21/21 13:30 No Known Drug Allergies Allergy Unknown NONE Verified 04/21/21 13:30 ragweed pollen Allergy Unknown asthma Verified 04/21/21 13:30 symptoms,dizziness,lethargy Consultations 04/21/21 14:01 Consult Wound Care Provider Stat 04/21/21 14:15 ED Decision to Admit Stat 04/21/21 19:00 Consult Scuba Dive Training Instructor Routine 04/23/21 16:10 Burn CD for patient Stat Procedures Performed Chest X-Ray 04/21/21 12:20 XR chest 1V portable HISTORY: 75 years-old Male SOB acute shortness of breath COMPARISON: Chest radiographs 04/30/2020 TECHNIQUE: Portable AP view of the chest FINDINGS: Cardiac silhouette is enlarged. Left subclavian pacer/AICD. Right hemidiaphragmatic elevation. Small pleural effusions with bibasilar opacities. There is pulmonary vascular congestion with mild interstitial coarsening. Degenerative changes of the shoulders and spine. IMPRESSION: 1. Cardiomegaly with pulmonary vascular congestion and interstitial coarsening suggestive of pulmonary edema. 2. Small pleural effusions with bibasilar consolidation. 3. Right hemidiaphragmatic elevation. ACT 112: Negative or not required by law. The above report was generated using voice recognition software. It may contain grammatical, syntax or spelling errors. Electronically signed by: Raf Bustamante M.D. 04/21/2021 1:14 PM Chest X-Ray 04/22/21 07:00 XR chest 1V portable HISTORY: Respiratory failure. COMPARISON: Chest 04/21/2021. FINDINGS: Left-sided pacemaker/defibrillator is again noted. No pneumothorax. The heart remains enlarged. Moderate right and small left pleural effusions persist. Right basilar consolidation and elevated right hemidiaphragm are again noted. There is perihilar interstitial/vascular thickening consistent with mild congestive change. IMPRESSION: 1. No change in the mild congestive change and bilateral pleural effusions. 2. Cardiomegaly and bibasilar densities persist. ACT 112: Negative or not required by law. Electronically signed by: Marquez Barker M.D. 04/22/2021 8:06 AM Hospital Course (1) Acute CHF: Mr. 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 Over the past 3-4 weeks, he is very short of breath with minimal activity, his legs and abdomen are edematous and swollen, has had orthopnea, and has been a unable to sleep for the past 2 or 3 nights. Additionally, his leg edema has been so bad that he now has some weeping areas on his legs. Patient has not been weighing himself daily because he has been feeling poorly, but he knows that he is much heavier due to fluid retention now than he normally is. patient has been adjusting his Lasix home varying between 40-60 mg daily. Either of these doses does result in increased urine output, but his breathing is not improving. He developed congestive heart failure and left ventricular dysfunction in 2015. His ejection fraction was felt to be normal on March 05, 2014 with an ejection fraction of 55 to 60%, unchanged from 2009. However a subsequent echocardiogram done September 22, 2015 showed moderate left ventricular dysfunction with ejection fraction of 35% to 40% as well as severe concentric left ventricular hypertrophy. Another echocardiogram January 16, 2016 showed his ejection fraction to have fallen to 30%-35%. This was felt to be due possibly to amyloid, however urine and protein electrophoresis were unremarkable. He was started on diuretics, he did not initially tolerate beta blockers due to exacerbation of asthma therefore his lisinopril was titrated. He was already on digoxin.He eventually started on a beta toni and did not have any further bronchospasm. He was subsequently switched to Entresto and that was titrated to optimal dosing with discontinuation of lisinopril. An echocardiogram April 21, 2016 was interpreted as an ejection fraction of 35% to 40% and although there was some fluctuation over the next year and a half by December 2017 his ejection fraction was about 40%. Clinically he was doing very well over the summer 2018, working very hard doing landscaping and not having difficulty with heart failure symptoms. He did not seem to be bothered very much by the atrial fibrillation either. Repeat echocardiogram to see whether the Entresto was helping with his left ventricular function, that was done January 04, 2019 and it showed severe global hypokinesis with severe concentric left ventricular hypertrophy and ejection fraction of 20% to 25%. This was felt to be worse than December 2017. Left ventricle however was felt to be normal in size. Amyloid workup done and based on serum and urine protein electrophoreses it does not seem to be present. An echocardiogram prior to his visit on January 08, 2020 and this shows severe left ventricular dysfunction with ejection fraction of 25% to 30%. With ongoing and gradually worsening heart failure symptoms, progressive left ventricular dysfunction on optimal medical therapy, a left bundle branch pattern with a wide QRS complex -- a biventricular ICD was recommended and placed in February 2020. Entresto was subsequently discontinued due to hypotension. Following the placement of a Bi-V AICD his LV systolic function did not improve. Patient was referred to [facility] heart failure clinic for advanced heart failure therapies and recommendations. Patient was considering an LVAD and a possible cardiac transplant. He underwent genetic testing for tame amyloidosis and this was negative. He was supposed to undergo a PYP nuclear study and have a RHC with endomyocardial biopsy -- but the patient did not feel comfortable with his provider at [facility] so he did not go back for these additional tests. Patient decided that he wanted another opinion regarding his ongoing heart failure and poor biventricular systolic function, but first he wants to get out of heart failure at our facility and then he will pursue a 2nd opinion at [facility]. Acute on chronic biventricular systolic CHF-he is end-stage and is not doing well. Placed on milrinone gtt and able to diurese some here with IV Bumex--> edema slightly improved, weights are not accurate Still dyspneic at rest -Continue milrinone drip and titrate up as needed for urine output -continue IV Bumex 2 mg twice daily -Continue Metoprolol Succinate ER 50 mg daily at bedtime. -Monitor daily I&O's, body weights, 2 gram low sodium diet, and 1500 ml fluid restriction -Appreciate cardiology consultation-transfer to [facility] in [facility] today for Advanced therapy for CHF evaluation--> accepting physician is Dr. Luca Whitehead (2) Biventricular heart failure with reduced left ventricular function: As above (3) ICD (implantable cardioverter-defibrillator), biventricular, in situ: -- BiV AICD implanted in February 2020, subsequent Echo showed no improvement in systolic function. (4) Cardiomyopathy: Concern for wild type cardiac amyloid. Patient was referred to [facility] heart failure clinic for advanced heart failure therapies and recommendations. Patient was considering an LVAD and a possible cardiac transplant. He underwent genetic testing for amyloidosis and this was negative. Previous SPEP/UPEP negative. He was supposed to undergo a PYP nuclear study and have a RHC with endomyocardial biopsy -- but the patient did not feel comfortable with his provider at [facility] so he did not go back for these additional tests. Patient decided that he wanted another opinion regarding his ongoing heart failure and poor biventricular systolic function, bu t first he wants to get out of heart failure at our facility and then he will pursue a 2nd opinion at [facility]. (5) Atrial fibrillation and flutter: Paced rhythm but has underlying permanent atrial fibrillation Continue Eliquis (6) Cardiorenal syndrome: Creatinine improved somewhat today down to 2.1 from 2.4 Renal failure likely made worse by low output cardiac failure. Urine sodium low at 18 and urine osmolality elevated in the 300s consistent with prerenal state -- Monitor daily labs. Avoid nephrotoxins Follow urine output (7) Thrombocytopenia: Platelets decreasing slightly to 125 and INR elevated 1.6, elevated LFTs May have some hepatic dysfunction from heart failure -Follow CBC (8) Hypothermia: Temperature persistently 35 C He is refusing lory hugger Likely due to low cardiac output (9) Hyponatremia: Sodium 132 and stable from previous, secondary to hypervolemia from heart failure Follow BMP (10) Elevated troponin: Likely myocardial demand ischemia from heart failure Troponin was 0.149/0.144 No chest pain (11) CKD (chronic kidney disease): As above (12) Hypothyroidism: TSH 2.4 in 03/2021 Continue home levothyroxine 125 mcg once daily (13) History of cerebral embolism: History of embolic stroke many years ago secondary to atrial fibrillation Continue Eliquis (14) Pleural effusion: Large right-sided pleural effusion secondary to CHF Attempting diuresis and with milrinone Not hypoxic but is dyspneic Follow chest x-ray (15) Anemia: Hemoglobin low at 9.7 MCV elevated at 101 B12 and folate normal, Transferrin sat is low at 9% consider IV iron tx DVT prophylaxis-Eliquis Disposition-transfer to [facility] today Prognosis guarded Full code Total Time Total Time Spent Total Time Spent (In Minutes): 60 min Discharge Plan Discharge Items Patient Disposition: Transfer Acute Care Hospital Reason For Visit: CHF, POSS CARDIAC AMYLOID Discharge Diagnosis: Acute on chronic systolic CHF Condition on Discharge: Critical Activity: As commented below Lifting: None Bathing: No limitations Exercise/Sports: Rest today Non-emergency contact: Primary Care Provider and Seismic Prospecting Supervisor Call non-emergency contact if: you have any medication questions Follow-up/Referrals: ProChun MD [Primary Care Provider] - Diet: Low Sodium (2gm) Addtl Attending Provider Instructions: Transferred to [facility] Pending Studies at Discharge: No Stand-Alone Forms: My [facility] Skilled Items Patient informed of condition?: Yes DNR: No Discharge Level of Care: Other Communicable Disease: No Discharge Prognosis: Stable Lines: Peripheral IV Urinary Catheter: Yes Medications and DC Order Prescriptions: Continued potassium chloride 10 mEq tablet extended release 10 meq PO BID RF: 0 omega 1-sdy-ajh-fish oil [Fish Oil] 1,000 mg (120 mg-180 mg) capsule 1 cap PO BID RF: 0 Eliquis 5 mg tablet 5 mg PO BID Qty: 60 RF: 11 metolazone 5 mg tablet 5 mg PO DAILY PRN (Reason: Fluid Retention) Qty: 90 RF: 3 (DME) Wheeled Walker Misc See Rx Instructions .Route Qty: 1 RF: 0 albuterol sulfate [ProAir HFA] 90 mcg/actuation HFA aerosol inhaler See Rx Instructions INH .COMPLEX Qty: 25.5 RF: 3 colchicine 0.6 mg tablet 0.6 mg PO BID PRN (Reason: GOUT) Qty: 180 RF: 0 furosemide 20 mg tablet 40 - 80 mg PO DAILY PRN (Reason: weight gain & edema per Cardiology) RF: 0 cetirizine [Zyrtec] 10 mg tablet 10 mg PO DAILY RF: 0 lorazepam 0.5 mg tablet 0.5 - 1 mg PO BID PRN (Reason: anxiety) Qty: 60 RF: 1 allopurinol 100 mg tablet 100 - 200 mg PO Q2D RF: 0 atorvastatin 10 mg tablet 10 mg PO HS RF: 0 cholecalciferol (vitamin D3) 1,000 unit (25 mcg) tablet 1,000 units PO QAM RF: 0 Saccharomyces boulardii [Florastor] 250 mg Capsule 250 mg PO BID RF: 0 levothyroxine 125 mcg tablet 125 mcg PO DAILYBB RF: 0 glucosamine HCl 500 mg tablet 2,000 mg PO BID RF: 0 multivitamin Tablet 1 tab PO Q2D RF: 0 fluticasone propion-salmeterol [Wixela Inhub] 250-50 mcg/dose blister with device 2 inh INHALATION BID RF: 0 metoprolol succinate 100 mg tablet extended release 24 hr 50 mg PO HS RF: 0 calcium carbonate [Tums] 200 mg calcium (500 mg) Tablet,Chewable 200 mg PO BID RF: 0 Admission Data Admit Date/Time: 04/21/21 16:19 Attending Provider: Devika Haider Admit Provider: Devika Haider Primary Care Provider: Chun Jurado Other Providers: Danny Puckett ; Devika Haider ; Harjinder Aiken Coding Level of Care Code D/C DAY MANAGEMENT >30 MINS Diagnoses Acute CHF I50.9 Heart failure type: unspecified Biventricular heart failure with reduced left ventricular function I50.814 ICD (implantable cardioverter-defibrillator), biventricular, in situ Z95.810 Cardiomyopathy I42.9 Cardiomyopathy type: unspecified Atrial fibrillation and flutter I48.91; I48.92 Cardiorenal syndrome I13.0 Heart failure presence: with heart failure Hypertensive chronic kidney disease stage: stage 1-4 or unspecified chronic kidney disease Thrombocytopenia D69.6 Hypothermia T68.XXXA Hyponatremia E87.1 Elevated troponin R77.8 CKD (chronic kidney disease) N18.9 Hypothyroidism E03.9 History of cerebral embolism Z86.79 Pleural effusion J90 Anemia D64.9 Anemia type: unspecified type
[2021-04-23] MEDS ORDERED: Nursing to Pharmacy Communication SCH (16:30)
[2021-04-23 20:16] VITALS: BP 115/72; PULSE 93; TEMP 95.9; O2SAT 96
[2021-04-24] MEDS ORDERED: allopurinoL 100 MG TAB PO SCH (09:00)
== END 2021-04-23 20:15 | disposition short-term general hospital (02) | DRG 291 ==
LOC: ED 12:12 → EDINP 16:19 → 1E 18:50